=== PATIENT | male | born 1945 | race Two or more races ===

== ENCOUNTER 2021-03-11 11:50 | Inpatient (IN) | payer OTHER ==
[~2021-03-11] VITALS: Ht 165.1 cm; Wt 66.0 kg
[2021-03-11] MEDS ORDERED: DexAMETHasone SOD PHOS 10MG/1ML VIAL INJ IV ONE (12:15)
[2021-03-11] MEDS ORDERED: ACETAMINOPHEN 650 MG RECT SUPP PR ONE (12:15)
[2021-03-11 13:45] LABS: Basophils # (auto) 0.1 10 ^3/uL (0-0.2); Basophils % (auto) 1.7 % (0.0-2.0); Eosinophils # (auto) 0 10 ^3/uL (0-0.8); Hematocrit 42.4 % (41.0-53.0); Hemoglobin 14.2 g/dL (13.5-17.5); Lymphocytes # (auto) 0.9 10 ^3/uL (0.4-5.4); Lymphocytes % (auto) 10.9 % (10.0-50.0); Mean Corpuscular Hemoglobin 28.8 pg (28.0-32.0); Mean Corpuscular Hgb Conc. 33.4 g/dL (32.0-36.0); Mean Corpuscular Volume 86.1 fL (80.0-100.0); Monocytes # (auto) 0.4 10 ^3/uL (0-1.3); Monocytes % (auto) 5.6 % (0.0-12.0); Neutrophils # (auto) 6.6 10 ^3/uL (1.6-8.6); Neutrophils % (auto) 81.8 % (37.0-80.0); Nucleated Red Blood Cells % 0.2 %; Red Blood Cells 4.92 10^6/uL (4.5-5.90); Red Cell Distribution Width 16.7 % (11.8-14.3)
[2021-03-11 13:59] LABS: INR 1.05 (0.9-1.15); Partial Thromboplastin Time 25.1 sec (23.6-33.0)
[2021-03-11 14:05] LABS: Albumin 2.7 g/dL (3.4-5.0); Calcium 8.3 mg/dL (8.5-10.1); Potassium 3.3 mmol/L (3.5-5.1)
[2021-03-11 14:24] LABS: BUN/Creatinine Ratio 24.2; Bilirubin, Total 0.5 mg/dL (0.2-1.0); Total Protein 7.1 g/dL (6.4-8.2)
[2021-03-11 15:14] LABS: CRP High Sensitivity 15.6 mg/dL (< 0.3)
[2021-03-11] MEDS ORDERED: cefTRIAXone 1GM/50ML D5W 50 ML IV ONE (18:00)
[2021-03-11] MEDS ORDERED: AZITHROMYCIN 500MG/ 250ML 250 ML IV ONE (18:00)
[2021-03-11] MEDS ORDERED: ENOXAPARIN SOD 80 MG/0.8ML SYRINGE SC ONE (18:00)
[2021-03-11] MEDS ORDERED: SOD CHL 0.9%/ KCL 20MEQ 1,000 ML IV ONE (18:30)
[2021-03-11] MEDS ORDERED: NITROGLYCERIN 0.4 MG SL TAB SL PRN (18:30)
[2021-03-11] MEDS ORDERED: VANCOMYCIN PER PHARMACY 0 MG IV SCH (18:30)
[2021-03-11] MEDS ORDERED: MORPHINE SULFATE INJECTION 2 MG/ML SYRG IV PRN ×2 (18:30)
[2021-03-11] MEDS ORDERED: hydrALAZINE HCL 20 MG/ML VL IV PRN (18:30)
[2021-03-11] MEDS ORDERED: ONDANSETRON HCL 4 MG/2 ML VIAL IV PRN (18:30)
[2021-03-11] MEDS ORDERED: REMDESIVIR PER PHARMACY 0 ML IV SCH (20:00)
[2021-03-11] MEDS ORDERED: IOHEXOL 350 MG/ML 100ML IJ ONE (20:42)
[2021-03-11] MEDS ORDERED: VANCOMYCIN 1GM/250ML 250 ML IV ONE (21:00)
[2021-03-11] MEDS: BUDESONIDE (INHALATION) 180 MCG IH IN SCH (21:52)
[2021-03-11] MEDS: VANCOMYCIN 1GM/250ML 250 ML IV SCH (22:00)
[2021-03-11] MEDS: FAMOTIDINE (10MG/ML) 2ML VL IV SCH (22:00)
[2021-03-11] MEDS ORDERED: REMDESIVIR 200 MG in NS 210ml LOADING DOSE ADULT IV ONE (22:00)
[2021-03-11 23:03] LABS: Urine Bacteria FEW /hpf (None Seen); Urine Blood 3+ /uL (Negative); Urine Mucus FEW (None Seen); Urine WBC 134 /hpf (0 - 3)
[2021-03-11 23:19] VITALS: BP 129/75
[2021-03-12] MEDS ORDERED: methylPREDNISolone SOD SUCC 125 MG/2 ML VL IV ONE (04:30)
[2021-03-12] MEDS ORDERED: NOREPINEPHRINE 8 MG/250ML KIT 250 ML IV SCH (04:45)
[2021-03-12] MEDS ORDERED: ROCURONIUM 10MG/ML 10ML VIAL IV ONE (04:45)
[2021-03-12] MEDS ORDERED: ETOMIDATE (2MG/ML) 20ML VIAL IV ONE (04:45)
[2021-03-12] MEDS ORDERED: PROPOFOL 100 ML IV SCH (04:45)
[2021-03-12 07:25] LABS: Basophils # (auto) 0 10 ^3/uL (0-0.2); Basophils % (auto) 0.3 % (0.0-2.0); Eosinophils # (auto) 0 10 ^3/uL (0-0.8); Hematocrit 38.3 % (41.0-53.0); Hemoglobin 13.1 g/dL (13.5-17.5); Lymphocytes # (auto) 0.5 10 ^3/uL (0.4-5.4); Lymphocytes % (auto) 7.7 % (10.0-50.0); Mean Corpuscular Hemoglobin 29.7 pg (28.0-32.0); Mean Corpuscular Hgb Conc. 34.3 g/dL (32.0-36.0); Mean Corpuscular Volume 86.8 fL (80.0-100.0); Monocytes # (auto) 0.3 10 ^3/uL (0-1.3); Monocytes % (auto) 4.3 % (0.0-12.0); Neutrophils # (auto) 6.2 10 ^3/uL (1.6-8.6); Neutrophils % (auto) 87.7 % (37.0-80.0); Nucleated Red Blood Cells % 0.1 %; Red Cell Distribution Width 16.8 % (11.8-14.3); White Blood Cell 7.1 10^3/uL (4.4-10.8)
[2021-03-12 07:40] LABS: Albumin 2.3 g/dL (3.4-5.0); Potassium 3.5 mmol/L (3.5-5.1)
[2021-03-12 07:48] LABS: BUN/Creatinine Ratio 27.8; Bilirubin, Total 0.4 mg/dL (0.2-1.0); CRP High Sensitivity 16.1 mg/dL (< 0.3); Total Protein 6.8 g/dL (6.4-8.2)
[2021-03-12] MEDS: cefTRIAXone 1GM/50ML D5W 50 ML IV SCH (08:35)
[2021-03-12] MEDS: ALBUTEROL SULF HFA 90MCG INH 200DOSE IN PRN (09:34)
[2021-03-12] MEDS: BUDESONIDE (INHALATION) 180 MCG IH IN SCH ×2 (09:35→22:00)
[2021-03-12] MEDS: DexAMETHasone SOD PHOS 10MG/1ML VIAL INJ IV SCH (09:52)
[2021-03-12] MEDS: CHOLECALCIFEROL (VITD3) 2,000 UNIT CAP/TAB PO SCH (10:00)
[2021-03-12] MEDS: ASCORBIC ACID 1,000 MG TAB PO SCH (10:00)
[2021-03-12] MEDS ORDERED: PANTOPRAZOLE 40 MG/10 ML VIAL INJ IV SCH (10:00)
[2021-03-12] MEDS: ZINC SULFATE 220mg CAP or TAB PO SCH (10:00)
[2021-03-12] MEDS: AZITHROMYCIN 500MG/ 250ML 250 ML IV SCH (10:02)
[2021-03-12] MEDS: FAMOTIDINE (10MG/ML) 2ML VL IV SCH ×2 (10:02→22:00)
[2021-03-12] MEDS: ENOXAPARIN SOD 40 MG/0.4 ML SYRINGE SC SCH ×2 (10:03→22:00)
[2021-03-12] MEDS: REMDESIVIR 100mg 100 MG in SODIUM CHL 0.9% 230 ML IV SCH (13:43)
[2021-03-12] MEDS: VANCOMYCIN 1GM/250ML 250 ML IV SCH (16:00)
[2021-03-12 18:38] LABS: Cholesterol 168 mg/dL (< 200)
[2021-03-12 18:40] LABS: HDL Cholesterol 25 mg/dL (40-59); LDL Cholesterol 123 mg/dL (< 100); Triglycerides 124 mg/dL (< 150)
[2021-03-12] MEDS ORDERED: MORPHINE SULFATE INJECTION 2 MG/ML SYRG IV PRN (19:15)
[2021-03-12] MEDS ORDERED: NITROGLYCERIN 0.4 MG SL TAB SL PRN (19:15)
[2021-03-12] MEDS: ATORVASTATIN 20 MG TAB PO SCH (22:00)
[2021-03-13] MEDS: HALOPERIDOL LACTATE 5 MG/ML INJ VIAL IM PRN ×2 (00:41→06:04)
[2021-03-13 07:00] LABS: Calcium 8.6 mg/dL (8.5-10.1)
[2021-03-13 07:09] LABS: Albumin 2.5 g/dL (3.4-5.0); BUN/Creatinine Ratio 28.6; Bilirubin, Total 0.4 mg/dL (0.2-1.0); CRP High Sensitivity 11.9 mg/dL (< 0.3); Total Protein 6.9 g/dL (6.4-8.2)
[2021-03-13] MEDS: BUDESONIDE (INHALATION) 180 MCG IH IN SCH (07:40)
[2021-03-13] MEDS: ALBUTEROL SULF HFA 90MCG INH 200DOSE IN PRN (07:52)
[2021-03-13] MEDS ORDERED: SUCCINYLCHOLINE CHLORIDE 20 MG/ML 10ML VIAL IV ONE ×2 (08:55→09:07)
[2021-03-13] MEDS ORDERED: ETOMIDATE (2MG/ML) 20ML VIAL IV ONE ×2 (08:55→09:07)
[2021-03-13] MEDS ORDERED: MIDAZOLAM DRIP 50 mg/50mL 50 ML IV ONE (08:55)
[2021-03-13] MEDS ORDERED: MIDAZOLAM HCL 2MG/2ML 2ml VIAL (1mg/ml) IV SCH (09:12)
[2021-03-13 09:35] VITALS: BP 92/58
[2021-03-13] MEDS: MIDAZOLAM DRIP 50 mg/50mL 50 ML IV SCH ×4 (10:06→23:29)
[2021-03-13] MEDS: PROPOFOL 100 ML IV SCH (10:15)
[2021-03-13] MEDS ORDERED: NOREPINEPHRINE 8 MG/250ML KIT 250 ML IV ONE (10:40)
[2021-03-13] MEDS: NOREPINEPHRINE 8 MG/250ML KIT 250 ML IV SCH (10:54)
[2021-03-13] MEDS: cefTRIAXone 1GM/50ML D5W 50 ML IV SCH (10:56)
[2021-03-13] MEDS ORDERED: ROCURONIUM 10MG/ML 10ML VIAL IV ONE (11:45)
[2021-03-13] MEDS: AZITHROMYCIN 500MG/ 250ML 250 ML IV SCH (11:55)
[2021-03-13] MEDS: ENOXAPARIN SOD 40 MG/0.4 ML SYRINGE SC SCH ×2 (11:56→21:52)
[2021-03-13] MEDS: FAMOTIDINE (10MG/ML) 2ML VL IV SCH ×2 (12:12→21:52)
[2021-03-13] MEDS: DexAMETHasone SOD PHOS 10MG/1ML VIAL INJ IV SCH (12:12)
[2021-03-13] MEDS: VANCOMYCIN 1GM/250ML 250 ML IV SCH (13:10)
[2021-03-13 14:09] VITALS: BP 108/60
[2021-03-13] MEDS: ZINC SULFATE 220mg CAP or TAB PO SCH (14:22)
[2021-03-13] MEDS: CHOLECALCIFEROL (VITD3) 2,000 UNIT CAP/TAB PO SCH (14:22)
[2021-03-13] MEDS: ASCORBIC ACID 1,000 MG TAB PO SCH (14:22)
[2021-03-13] MEDS: REMDESIVIR 100mg 100 MG in SODIUM CHL 0.9% 230 ML IV SCH (15:55)
[2021-03-13 18:25] VITALS: BP 118/52
[2021-03-13] MEDS: ALBUTEROL SULF 2.5 MG/0.5ML(0.5%) NEB SOLN NEB PRN (18:47)
[2021-03-13] MEDS: BUDESONIDE (INHALATION) 0.5 MG/2 ML NEB NEB SCH (18:47)
[2021-03-13 20:21] VITALS: BP 148/77
[2021-03-13] MEDS: ATORVASTATIN 20 MG TAB PO SCH (21:52)
[2021-03-13 22:43] VITALS: BP 121/69
[2021-03-14] VITALS (14 sets, daily range): BP systolic 90–121; BP diastolic 48–66
[2021-03-14] MEDS: VANCOMYCIN 1GM/250ML 250 ML IV SCH ×2 (04:03→16:19)
[2021-03-14 06:41] LABS: Basophils # (auto) 0 10 ^3/uL (0-0.2); Basophils % (auto) 0.2 % (0.0-2.0); Eosinophils # (auto) 0 10 ^3/uL (0-0.8); Hematocrit 32.3 % (41.0-53.0); Hemoglobin 11.1 g/dL (13.5-17.5); Lymphocytes # (auto) 0.6 10 ^3/uL (0.4-5.4); Lymphocytes % (auto) 8.6 % (10.0-50.0); Mean Corpuscular Hemoglobin 29.9 pg (28.0-32.0); Mean Corpuscular Hgb Conc. 34.4 g/dL (32.0-36.0); Mean Corpuscular Volume 86.8 fL (80.0-100.0); Monocytes # (auto) 0.3 10 ^3/uL (0-1.3); Monocytes % (auto) 4.5 % (0.0-12.0); Neutrophils # (auto) 6.6 10 ^3/uL (1.6-8.6); Neutrophils % (auto) 86.7 % (37.0-80.0); Nucleated Red Blood Cells % 0.1 %; Red Blood Cells 3.73 10^6/uL (4.5-5.90); Red Cell Distribution Width 16.7 % (11.8-14.3); White Blood Cell 7.6 10^3/uL (4.4-10.8)
[2021-03-14 06:54] LABS: Potassium 3.5 mmol/L (3.5-5.1)
[2021-03-14] MEDS: MIDAZOLAM DRIP 50 mg/50mL 50 ML IV SCH ×4 (07:01→17:57)
[2021-03-14 07:20] LABS: Albumin 1.8 g/dL (3.4-5.0); BUN/Creatinine Ratio 27.1; Bilirubin, Total 0.4 mg/dL (0.2-1.0); CRP High Sensitivity 15.1 mg/dL (< 0.3); Calcium 7.5 mg/dL (8.5-10.1); Total Protein 5.4 g/dL (6.4-8.2)
[2021-03-14] MEDS: BUDESONIDE (INHALATION) 0.5 MG/2 ML NEB NEB SCH ×2 (07:35→18:56)
[2021-03-14] MEDS: ALBUTEROL SULF 2.5 MG/0.5ML(0.5%) NEB SOLN NEB PRN ×2 (07:35→18:56)
[2021-03-14] MEDS: PROPOFOL 100 ML IV SCH ×2 (09:09→15:58)
[2021-03-14] MEDS: cefTRIAXone 1GM/50ML D5W 50 ML IV SCH (10:16)
[2021-03-14] MEDS: ZINC SULFATE 220mg CAP or TAB PO SCH (10:17)
[2021-03-14] MEDS: CHOLECALCIFEROL (VITD3) 2,000 UNIT CAP/TAB PO SCH (10:17)
[2021-03-14] MEDS: ASCORBIC ACID 1,000 MG TAB PO SCH (10:17)
[2021-03-14] MEDS: DexAMETHasone SOD PHOS 10MG/1ML VIAL INJ IV SCH (10:17)
[2021-03-14] MEDS: AZITHROMYCIN 500MG/ 250ML 250 ML IV SCH (10:17)
[2021-03-14] MEDS: FAMOTIDINE (10MG/ML) 2ML VL IV SCH ×2 (10:17→21:49)
[2021-03-14] MEDS: ENOXAPARIN SOD 40 MG/0.4 ML SYRINGE SC SCH ×2 (10:18→21:49)
[2021-03-14] MEDS: NOREPINEPHRINE 8 MG/250ML KIT 250 ML IV SCH (10:45)
[2021-03-14] MEDS: REMDESIVIR 100mg 100 MG in SODIUM CHL 0.9% 230 ML IV SCH (15:21)
[2021-03-14] MEDS: ATORVASTATIN 20 MG TAB PO SCH (21:35)
[2021-03-15] VITALS (9 sets, daily range): BP systolic 104–149; BP diastolic 53–64
[2021-03-15] MEDS: MIDAZOLAM DRIP 50 mg/50mL 50 ML IV SCH ×6 (02:30→18:10)
[2021-03-15] MEDS: VANCOMYCIN 1GM/250ML 250 ML IV SCH ×2 (04:15→17:01)
[2021-03-15] MEDS: BUDESONIDE (INHALATION) 0.5 MG/2 ML NEB NEB SCH ×2 (05:52→22:26)
[2021-03-15] MEDS: ALBUTEROL SULF 2.5 MG/0.5ML(0.5%) NEB SOLN NEB PRN ×2 (05:52→22:25)
[2021-03-15 07:53] LABS: Albumin 1.7 g/dL (3.4-5.0); BUN/Creatinine Ratio 24.3; Basophils # (auto) 0 10 ^3/uL (0-0.2); Basophils % (auto) 0.1 % (0.0-2.0); Calcium 7.7 mg/dL (8.5-10.1); Eosinophils # (auto) 0 10 ^3/uL (0-0.8); Hematocrit 33.6 % (41.0-53.0); Hemoglobin 11.1 g/dL (13.5-17.5); Lymphocytes # (auto) 0.5 10 ^3/uL (0.4-5.4); Mean Corpuscular Hemoglobin 29.1 pg (28.0-32.0); Mean Corpuscular Volume 88.3 fL (80.0-100.0); Monocytes # (auto) 0.3 10 ^3/uL (0-1.3); Monocytes % (auto) 4.7 % (0.0-12.0); Neutrophils # (auto) 6.3 10 ^3/uL (1.6-8.6); Neutrophils % (auto) 88.2 % (37.0-80.0); Potassium 3.8 mmol/L (3.5-5.1); Red Blood Cells 3.81 10^6/uL (4.5-5.90); Red Cell Distribution Width 17.7 % (11.8-14.3); White Blood Cell 7.2 10^3/uL (4.4-10.8)
[2021-03-15 07:56] LABS: Bilirubin, Total 0.3 mg/dL (0.2-1.0); Total Protein 5.4 g/dL (6.4-8.2)
[2021-03-15] MEDS: cefTRIAXone 1GM/50ML D5W 50 ML IV SCH (09:50)
[2021-03-15] MEDS: DexAMETHasone SOD PHOS 10MG/1ML VIAL INJ IV SCH (10:04)
[2021-03-15] MEDS: CHOLECALCIFEROL (VITD3) 2,000 UNIT CAP/TAB PO SCH (10:04)
[2021-03-15] MEDS: ZINC SULFATE 220mg CAP or TAB PO SCH (10:04)
[2021-03-15] MEDS: ASCORBIC ACID 1,000 MG TAB PO SCH (10:04)
[2021-03-15] MEDS: FAMOTIDINE (10MG/ML) 2ML VL IV SCH ×2 (10:04→22:16)
[2021-03-15] MEDS: ENOXAPARIN SOD 40 MG/0.4 ML SYRINGE SC SCH ×2 (10:04→22:17)
[2021-03-15] MEDS: AZITHROMYCIN 500MG/ 250ML 250 ML IV SCH (10:05)
[2021-03-15] MEDS: PROPOFOL 100 ML IV SCH ×3 (10:32→19:13)
[2021-03-15] MEDS: NOREPINEPHRINE 8 MG/250ML KIT 250 ML IV SCH (11:30)
[2021-03-15] MEDS: REMDESIVIR 100mg 100 MG in SODIUM CHL 0.9% 230 ML IV SCH (16:44)
[2021-03-15] MEDS: METOCLOPRAMIDE HCL 5MG/ml INJ 2ml VIAL IV SCH (22:16)
[2021-03-15] MEDS: ATORVASTATIN 20 MG TAB PO SCH (22:17)
[2021-03-16] VITALS (9 sets, daily range): BP systolic 103–122; BP diastolic 52–66
[2021-03-16] MEDS: VANCOMYCIN 1GM/250ML 250 ML IV SCH ×2 (03:57→16:12)
[2021-03-16] MEDS: BUDESONIDE (INHALATION) 0.5 MG/2 ML NEB NEB SCH ×2 (06:18→22:13)
[2021-03-16] MEDS: ALBUTEROL SULF 2.5 MG/0.5ML(0.5%) NEB SOLN NEB PRN (06:18)
[2021-03-16] MEDS: METOCLOPRAMIDE HCL 5MG/ml INJ 2ml VIAL IV SCH ×3 (06:20→22:15)
[2021-03-16] MEDS: MIDAZOLAM DRIP 50 mg/50mL 50 ML IV SCH ×4 (08:00→23:00)
[2021-03-16] MEDS: cefTRIAXone 1GM/50ML D5W 50 ML IV SCH (09:23)
[2021-03-16] MEDS: CHOLECALCIFEROL (VITD3) 2,000 UNIT CAP/TAB PO SCH (09:25)
[2021-03-16] MEDS: ASCORBIC ACID 1,000 MG TAB PO SCH (09:25)
[2021-03-16] MEDS: DexAMETHasone SOD PHOS 10MG/1ML VIAL INJ IV SCH (09:25)
[2021-03-16] MEDS: ZINC SULFATE 220mg CAP or TAB PO SCH (09:25)
[2021-03-16] MEDS: FAMOTIDINE (10MG/ML) 2ML VL IV SCH ×2 (09:26→22:14)
[2021-03-16] MEDS: ENOXAPARIN SOD 40 MG/0.4 ML SYRINGE SC SCH ×2 (09:26→22:15)
[2021-03-16] MEDS: AZITHROMYCIN 500MG/ 250ML 250 ML IV SCH (09:54)
[2021-03-16] MEDS: NOREPINEPHRINE 8 MG/250ML KIT 250 ML IV SCH (10:45)
[2021-03-16] MEDS: ATORVASTATIN 20 MG TAB PO SCH (22:15)
[2021-03-17] VITALS (73 sets, daily range): BP systolic 98–129; BP diastolic 48–92
[2021-03-17] MEDS ORDERED: PROPOFOL 100 ML IV ONE ×2 (02:51→13:30)
[2021-03-17] MEDS: VANCOMYCIN 1GM/250ML 250 ML IV SCH ×2 (05:32→16:13)
[2021-03-17] MEDS: METOCLOPRAMIDE HCL 5MG/ml INJ 2ml VIAL IV SCH ×3 (05:32→21:59)
[2021-03-17] MEDS ORDERED: PROPOFOL 200 ML IV ONE (05:39)
[2021-03-17] MEDS ORDERED: MIDAZOLAM DRIP 50 mg/50mL 100 ML IV ONE (05:43)
[2021-03-17] MEDS ORDERED: VANCOMYCIN 1GM/250ML 250 ML IV ONE (05:44)
[2021-03-17] MEDS ORDERED: METOCLOPRAMIDE HCL 5MG/ml INJ 2ml VIAL ONE (05:44)
[2021-03-17 06:00] LABS: Hematocrit 33.2 % (41.0-53.0)
[2021-03-17 06:02] LABS: Mean Corpuscular Hemoglobin 28.7 pg (28.0-32.0); Mean Corpuscular Hgb Conc. 33.1 g/dL (32.0-36.0); Mean Corpuscular Volume 86.8 fL (80.0-100.0); Red Blood Cells 3.83 10^6/uL (4.5-5.90); Red Cell Distribution Width 17.1 % (11.8-14.3); White Blood Cell 7.2 10^3/uL (4.4-10.8)
[2021-03-17] MEDS: ALBUTEROL SULF 2.5 MG/0.5ML(0.5%) NEB SOLN NEB PRN ×2 (06:20→18:59)
[2021-03-17 06:21] LABS: BUN/Creatinine Ratio 38.3; Magnesium 2.8 mg/dL (1.6-2.6); Potassium 4.5 mmol/L (3.5-5.1)
[2021-03-17] MEDS: BUDESONIDE (INHALATION) 0.5 MG/2 ML NEB NEB SCH ×2 (06:21→19:00)
[2021-03-17 06:34] LABS: Basophils % (manual) 0 (0.0-2.0); Blast Cells 0; Eosinophils % (manual) 0 (0-7); Metamyelocytes % 0; Myelocytes % 0; Promyelocytes % 0; Reactive Lymphocytes 0
[2021-03-17 08:46] LABS: Band Neutrophils % (manual) 2; Lymphocytes % (manual) 10 (10.0-50.0); Monocytes % (manual) 6 (0-12)
[2021-03-17] MEDS: MIDAZOLAM DRIP 50 mg/50mL 50 ML IV SCH ×4 (09:00→23:18)
[2021-03-17] MEDS: cefTRIAXone 1GM/50ML D5W 50 ML IV SCH (09:37)
[2021-03-17] MEDS ORDERED: cefTRIAXone 1GM/50ML D5W 50 ML IV ONE (09:39)
[2021-03-17] MEDS: ZINC SULFATE 220mg CAP or TAB PO SCH (10:00)
[2021-03-17] MEDS: CHOLECALCIFEROL (VITD3) 2,000 UNIT CAP/TAB PO SCH (10:00)
[2021-03-17] MEDS: ASCORBIC ACID 1,000 MG TAB PO SCH (10:00)
[2021-03-17] MEDS: ENOXAPARIN SOD 40 MG/0.4 ML SYRINGE SC SCH ×2 (10:00→22:00)
[2021-03-17] MEDS: DexAMETHasone SOD PHOS 10MG/1ML VIAL INJ IV SCH (10:00)
[2021-03-17] MEDS: FAMOTIDINE (10MG/ML) 2ML VL IV SCH ×2 (10:00→21:59)
[2021-03-17] MEDS: PROPOFOL 100 ML IV SCH (10:15)
[2021-03-17] MEDS: NOREPINEPHRINE 8 MG/250ML KIT 250 ML IV SCH (10:45)
[2021-03-17] MEDS ORDERED: MIDAZOLAM DRIP 50 mg/50mL 50 ML IV ONE (11:56)
[2021-03-17] MEDS: ATORVASTATIN 20 MG TAB PO SCH (21:59)
[2021-03-18] VITALS (101 sets, daily range): BP systolic 86–144; BP diastolic 44–68
[2021-03-18] MEDS: MIDAZOLAM DRIP 50 mg/50mL 50 ML IV SCH ×6 (03:39→22:36)
[2021-03-18] MEDS: PROPOFOL 100 ML IV SCH ×5 (03:40→19:38)
[2021-03-18] MEDS: VANCOMYCIN 1GM/250ML 250 ML IV SCH ×2 (03:51→16:36)
[2021-03-18] MEDS: ALBUTEROL SULF 2.5 MG/0.5ML(0.5%) NEB SOLN NEB PRN (05:48)
[2021-03-18] MEDS: BUDESONIDE (INHALATION) 0.5 MG/2 ML NEB NEB SCH ×2 (05:49→22:28)
[2021-03-18] MEDS: METOCLOPRAMIDE HCL 5MG/ml INJ 2ml VIAL IV SCH ×3 (06:53→22:03)
[2021-03-18] MEDS: cefTRIAXone 1GM/50ML D5W 50 ML IV SCH (08:59)
[2021-03-18] MEDS: DexAMETHasone SOD PHOS 10MG/1ML VIAL INJ IV SCH (09:40)
[2021-03-18] MEDS: FAMOTIDINE (10MG/ML) 2ML VL IV SCH ×2 (09:40→22:02)
[2021-03-18] MEDS: ASCORBIC ACID 1,000 MG TAB PO SCH (09:41)
[2021-03-18] MEDS: CHOLECALCIFEROL (VITD3) 2,000 UNIT CAP/TAB PO SCH (09:41)
[2021-03-18] MEDS: ZINC SULFATE 220mg CAP or TAB PO SCH (09:41)
[2021-03-18] MEDS: ENOXAPARIN SOD 40 MG/0.4 ML SYRINGE SC SCH ×2 (09:42→22:03)
[2021-03-18] MEDS: NOREPINEPHRINE 8 MG/250ML KIT 250 ML IV SCH (10:34)
[2021-03-18] MEDS ORDERED: MICAFUNGIN SODIUM 100 MG in SODIUM CHL 0.9% 100 ML IV ONE (15:00)
[2021-03-18] MEDS: ATORVASTATIN 20 MG TAB PO SCH (22:02)
[2021-03-19] VITALS (102 sets, daily range): BP systolic 98–158; BP diastolic 50–80
[2021-03-19] MEDS: PROPOFOL 100 ML IV SCH ×3 (00:12→17:30)
[2021-03-19] MEDS: VANCOMYCIN 1GM/250ML 250 ML IV SCH ×2 (03:49→17:31)
[2021-03-19] MEDS: MIDAZOLAM DRIP 50 mg/50mL 50 ML IV SCH ×5 (05:09→22:38)
[2021-03-19 05:13] LABS: Basophils # (auto) 0 10 ^3/uL (0-0.2); Basophils % (auto) 0.1 % (0.0-2.0); Eosinophils # (auto) 0 10 ^3/uL (0-0.8); Hematocrit 31.9 % (41.0-53.0); Hemoglobin 10.7 g/dL (13.5-17.5); Lymphocytes # (auto) 0.5 10 ^3/uL (0.4-5.4); Lymphocytes % (auto) 5.7 % (10.0-50.0); Mean Corpuscular Hemoglobin 29.2 pg (28.0-32.0); Mean Corpuscular Hgb Conc. 33.6 g/dL (32.0-36.0); Mean Corpuscular Volume 87.1 fL (80.0-100.0); Monocytes # (auto) 0.2 10 ^3/uL (0-1.3); Monocytes % (auto) 2.7 % (0.0-12.0); Neutrophils # (auto) 7.6 10 ^3/uL (1.6-8.6); Neutrophils % (auto) 91.5 % (37.0-80.0); Nucleated Red Blood Cells % 0.1 %; Red Blood Cells 3.66 10^6/uL (4.5-5.90); Red Cell Distribution Width 17.2 % (11.8-14.3); White Blood Cell 8.3 10^3/uL (4.4-10.8)
[2021-03-19 05:32] LABS: Calcium 8.5 mg/dL (8.5-10.1); Potassium 4.3 mmol/L (3.5-5.1)
[2021-03-19 05:34] LABS: BUN/Creatinine Ratio 42.9
[2021-03-19] MEDS: METOCLOPRAMIDE HCL 5MG/ml INJ 2ml VIAL IV SCH ×3 (05:56→22:39)
[2021-03-19] MEDS: BUDESONIDE (INHALATION) 0.5 MG/2 ML NEB NEB SCH ×2 (06:34→22:32)
[2021-03-19] MEDS: ALBUTEROL SULF 2.5 MG/0.5ML(0.5%) NEB SOLN NEB PRN ×2 (06:34→22:32)
[2021-03-19] MEDS: cefTRIAXone 1GM/50ML D5W 50 ML IV SCH (09:14)
[2021-03-19] MEDS: FAMOTIDINE (10MG/ML) 2ML VL IV SCH ×2 (09:55→22:38)
[2021-03-19] MEDS: ASCORBIC ACID 1,000 MG TAB PO SCH (09:55)
[2021-03-19] MEDS: ZINC SULFATE 220mg CAP or TAB PO SCH (09:55)
[2021-03-19] MEDS: DexAMETHasone SOD PHOS 10MG/1ML VIAL INJ IV SCH (09:55)
[2021-03-19] MEDS: ENOXAPARIN SOD 40 MG/0.4 ML SYRINGE SC SCH (09:56)
[2021-03-19] MEDS: MICAFUNGIN SODIUM 100 MG in SODIUM CHL 0.9% 100 ML IV SCH (09:59)
[2021-03-19] MEDS: CHOLECALCIFEROL (VITD3) 2,000 UNIT CAP/TAB PO SCH (10:30)
[2021-03-19] MEDS: NOREPINEPHRINE 8 MG/250ML KIT 250 ML IV SCH (10:45)
[2021-03-19] MEDS: Glucerna 1.2 Cal 1Liter BOTTLE GT SCH ×2 (13:30→13:42)
[2021-03-19] MEDS: ATORVASTATIN 20 MG TAB PO SCH (22:39)
[2021-03-20] VITALS (105 sets, daily range): BP systolic 72–172; BP diastolic 43–113
[2021-03-20] MEDS: MIDAZOLAM DRIP 50 mg/50mL 50 ML IV SCH ×5 (01:40→22:00)
[2021-03-20 04:30] LABS: Hematocrit 32.4 % (41.0-53.0); Hemoglobin 10.6 g/dL (13.5-17.5); Mean Corpuscular Hemoglobin 28.6 pg (28.0-32.0); Mean Corpuscular Hgb Conc. 32.8 g/dL (32.0-36.0); Mean Corpuscular Volume 87.3 fL (80.0-100.0); Red Blood Cells 3.71 10^6/uL (4.5-5.90); Red Cell Distribution Width 17.4 % (11.8-14.3); White Blood Cell 7.9 10^3/uL (4.4-10.8)
[2021-03-20 04:34] LABS: BUN/Creatinine Ratio 42.3; Calcium 8.3 mg/dL (8.5-10.1); Potassium 4.3 mmol/L (3.5-5.1)
[2021-03-20 04:43] LABS: CRP High Sensitivity 10.6 mg/dL (< 0.3)
[2021-03-20 04:46] LABS: Basophils % (manual) 0 (0.0-2.0); Blast Cells 0; Eosinophils % (manual) 0 (0-7); Metamyelocytes % 0; Myelocytes % 0; Promyelocytes % 0; Reactive Lymphocytes 0
[2021-03-20 06:14] LABS: Band Neutrophils % (manual) 4; Lymphocytes % (manual) 5 (10.0-50.0); Monocytes % (manual) 2 (0-12)
[2021-03-20] MEDS: ALBUTEROL SULF 2.5 MG/0.5ML(0.5%) NEB SOLN NEB PRN ×2 (06:24→18:50)
[2021-03-20] MEDS: BUDESONIDE (INHALATION) 0.5 MG/2 ML NEB NEB SCH ×2 (06:24→18:50)
[2021-03-20] MEDS: METOCLOPRAMIDE HCL 5MG/ml INJ 2ml VIAL IV SCH ×3 (06:37→22:07)
[2021-03-20] MEDS: VANCOMYCIN 1GM/250ML 250 ML IV SCH ×2 (08:15→22:07)
[2021-03-20] MEDS: cefTRIAXone 1GM/50ML D5W 50 ML IV SCH (09:42)
[2021-03-20] MEDS: ASCORBIC ACID 1,000 MG TAB PO SCH (09:43)
[2021-03-20] MEDS: ZINC SULFATE 220mg CAP or TAB PO SCH (09:43)
[2021-03-20] MEDS: FAMOTIDINE (10MG/ML) 2ML VL IV SCH ×2 (09:43→22:07)
[2021-03-20] MEDS: DexAMETHasone SOD PHOS 10MG/1ML VIAL INJ IV SCH (09:43)
[2021-03-20] MEDS: CHOLECALCIFEROL (VITD3) 2,000 UNIT CAP/TAB PO SCH (09:44)
[2021-03-20] MEDS: MICAFUNGIN SODIUM 100 MG in SODIUM CHL 0.9% 100 ML IV SCH (10:40)
[2021-03-20] MEDS: NOREPINEPHRINE 8 MG/250ML KIT 250 ML IV SCH (10:45)
[2021-03-20] MEDS: ASPirin 81 mg TAB PO SCH (11:40)
[2021-03-20] MEDS ORDERED: fentaNYL Drip 2500mCg/250mlNS 250 ML IV SCH (13:15)
[2021-03-20] MEDS: fentaNYL Drip 2500mCg/250mlNS 250 ML IV SCH (21:59)
[2021-03-20] MEDS: ATORVASTATIN 20 MG TAB PO SCH (22:08)
[2021-03-20] MEDS: PROPOFOL 100 ML IV SCH (22:22)
[2021-03-21] VITALS (105 sets, daily range): BP systolic 71–143; BP diastolic 35–109
[2021-03-21 04:55] LABS: Basophils # (auto) 0 10 ^3/uL (0-0.2); Basophils % (auto) 0.2 % (0.0-2.0); Eosinophils # (auto) 0 10 ^3/uL (0-0.8); Eosinophils % (auto) 0.2 % (0.0-7.0); Hematocrit 31.5 % (41.0-53.0); Hemoglobin 10.4 g/dL (13.5-17.5); Lymphocytes # (auto) 0.5 10 ^3/uL (0.4-5.4); Lymphocytes % (auto) 5.4 % (10.0-50.0); Mean Corpuscular Hemoglobin 28.9 pg (28.0-32.0); Mean Corpuscular Hgb Conc. 33.1 g/dL (32.0-36.0); Mean Corpuscular Volume 87.5 fL (80.0-100.0); Monocytes # (auto) 0.4 10 ^3/uL (0-1.3); Monocytes % (auto) 4.9 % (0.0-12.0); Neutrophils # (auto) 7.7 10 ^3/uL (1.6-8.6); Neutrophils % (auto) 89.3 % (37.0-80.0); Nucleated Red Blood Cells % 0.2 %; Red Blood Cells 3.59 10^6/uL (4.5-5.90); Red Cell Distribution Width 17.2 % (11.8-14.3); White Blood Cell 8.6 10^3/uL (4.4-10.8)
[2021-03-21 05:14] LABS: BUN/Creatinine Ratio 34.5; Calcium 8.4 mg/dL (8.5-10.1); Potassium 4.7 mmol/L (3.5-5.1)
[2021-03-21] MEDS: ALBUTEROL SULF 2.5 MG/0.5ML(0.5%) NEB SOLN NEB PRN ×2 (06:21→22:40)
[2021-03-21] MEDS: BUDESONIDE (INHALATION) 0.5 MG/2 ML NEB NEB SCH ×2 (06:21→22:41)
[2021-03-21] MEDS: METOCLOPRAMIDE HCL 5MG/ml INJ 2ml VIAL IV SCH ×3 (06:50→22:38)
[2021-03-21] MEDS: PROPOFOL 100 ML IV SCH ×5 (09:00→22:37)
[2021-03-21] MEDS: cefTRIAXone 1GM/50ML D5W 50 ML IV SCH (09:07)
[2021-03-21] MEDS: MIDAZOLAM DRIP 50 mg/50mL 50 ML IV SCH ×2 (09:08→17:35)
[2021-03-21] MEDS: FAMOTIDINE (10MG/ML) 2ML VL IV SCH ×2 (10:11→22:36)
[2021-03-21] MEDS: ASCORBIC ACID 1,000 MG TAB PO SCH (10:12)
[2021-03-21] MEDS: ASPirin 81 mg TAB PO SCH (10:12)
[2021-03-21] MEDS: DexAMETHasone SOD PHOS 10MG/1ML VIAL INJ IV SCH (10:12)
[2021-03-21] MEDS: CHOLECALCIFEROL (VITD3) 2,000 UNIT CAP/TAB PO SCH (10:12)
[2021-03-21] MEDS: ZINC SULFATE 220mg CAP or TAB PO SCH (10:12)
[2021-03-21] MEDS: MICAFUNGIN SODIUM 100 MG in SODIUM CHL 0.9% 100 ML IV SCH (10:16)
[2021-03-21] MEDS: NOREPINEPHRINE 8 MG/250ML KIT 250 ML IV SCH (10:45)
[2021-03-21] MEDS: VANCOMYCIN 1GM/250ML 250 ML IV SCH (11:57)
[2021-03-21] MEDS: fentaNYL Drip 2500mCg/250mlNS 250 ML IV SCH (17:32)
[2021-03-21] MEDS: ATORVASTATIN 20 MG TAB PO SCH (22:38)
[2021-03-22] VITALS (102 sets, daily range): BP systolic 72–168; BP diastolic 37–132
[2021-03-22] MEDS: VANCOMYCIN 1GM/250ML 250 ML IV SCH (02:00)
[2021-03-22 04:56] LABS: Basophils # (auto) 0 10 ^3/uL (0-0.2); Basophils % (auto) 0.1 % (0.0-2.0); Eosinophils # (auto) 0 10 ^3/uL (0-0.8); Eosinophils % (auto) 0.4 % (0.0-7.0); Hematocrit 30.3 % (41.0-53.0); Hemoglobin 10.1 g/dL (13.5-17.5); Lymphocytes # (auto) 0.4 10 ^3/uL (0.4-5.4); Lymphocytes % (auto) 4.4 % (10.0-50.0); Mean Corpuscular Hgb Conc. 33.2 g/dL (32.0-36.0); Mean Corpuscular Volume 87.2 fL (80.0-100.0); Monocytes # (auto) 0.3 10 ^3/uL (0-1.3); Monocytes % (auto) 2.8 % (0.0-12.0); Neutrophils # (auto) 8.4 10 ^3/uL (1.6-8.6); Neutrophils % (auto) 92.3 % (37.0-80.0); Nucleated Red Blood Cells % 0.1 %; Red Blood Cells 3.48 10^6/uL (4.5-5.90); Red Cell Distribution Width 17.4 % (11.8-14.3); White Blood Cell 9.1 10^3/uL (4.4-10.8)
[2021-03-22 05:15] LABS: Potassium 4.3 mmol/L (3.5-5.1)
[2021-03-22 05:20] LABS: BUN/Creatinine Ratio 41.9; Calcium 8.5 mg/dL (8.5-10.1)
[2021-03-22] MEDS: ALBUTEROL SULF 2.5 MG/0.5ML(0.5%) NEB SOLN NEB PRN ×2 (06:27→18:43)
[2021-03-22] MEDS: BUDESONIDE (INHALATION) 0.5 MG/2 ML NEB NEB SCH ×2 (06:27→18:42)
[2021-03-22] MEDS: METOCLOPRAMIDE HCL 5MG/ml INJ 2ml VIAL IV SCH ×3 (06:59→22:16)
[2021-03-22] MEDS: cefTRIAXone 1GM/50ML D5W 50 ML IV SCH (09:51)
[2021-03-22] MEDS: ASPirin 81 mg TAB PO SCH (09:52)
[2021-03-22] MEDS: DexAMETHasone SOD PHOS 10MG/1ML VIAL INJ IV SCH (09:52)
[2021-03-22] MEDS: FAMOTIDINE (10MG/ML) 2ML VL IV SCH ×2 (09:52→22:16)
[2021-03-22] MEDS: MICAFUNGIN SODIUM 100 MG in SODIUM CHL 0.9% 100 ML IV SCH (09:52)
[2021-03-22] MEDS: ASCORBIC ACID 1,000 MG TAB PO SCH (09:52)
[2021-03-22] MEDS: CHOLECALCIFEROL (VITD3) 2,000 UNIT CAP/TAB PO SCH (09:52)
[2021-03-22] MEDS: ZINC SULFATE 220mg CAP or TAB PO SCH (09:52)
[2021-03-22] MEDS: ENOXAPARIN SOD 40 MG/0.4 ML SYRINGE SC SCH (11:59)
[2021-03-22] MEDS: PROPOFOL 100 ML IV SCH ×2 (17:40→21:07)
[2021-03-22] MEDS: fentaNYL Drip 2500mCg/250mlNS 250 ML IV SCH (18:42)
[2021-03-22] MEDS: NOREPINEPHRINE 8 MG/250ML KIT 250 ML IV SCH (21:08)
[2021-03-22] MEDS: ATORVASTATIN 20 MG TAB PO SCH (22:16)
[2021-03-23] VITALS (97 sets, daily range): BP systolic 90–167; BP diastolic 39–72
[2021-03-23] MEDS: MIDAZOLAM DRIP 50 mg/50mL 50 ML IV SCH ×2 (01:27→05:10)
[2021-03-23] MEDS: PROPOFOL 100 ML IV SCH ×2 (01:41→05:10)
[2021-03-23] MEDS: METOCLOPRAMIDE HCL 5MG/ml INJ 2ml VIAL IV SCH ×3 (05:28→22:34)
[2021-03-23 05:51] LABS: Basophils # (auto) 0 10 ^3/uL (0-0.2); Basophils % (auto) 0.2 % (0.0-2.0); Eosinophils # (auto) 0.1 10 ^3/uL (0-0.8); Eosinophils % (auto) 0.7 % (0.0-7.0); Hemoglobin 10.2 g/dL (13.5-17.5); Lymphocytes # (auto) 0.6 10 ^3/uL (0.4-5.4); Lymphocytes % (auto) 5.8 % (10.0-50.0); Mean Corpuscular Hemoglobin 28.4 pg (28.0-32.0); Mean Corpuscular Volume 86.1 fL (80.0-100.0); Monocytes # (auto) 0.2 10 ^3/uL (0-1.3); Monocytes % (auto) 2.2 % (0.0-12.0); Neutrophils # (auto) 9.5 10 ^3/uL (1.6-8.6); Neutrophils % (auto) 91.1 % (37.0-80.0); Nucleated Red Blood Cells % 0.1 %; Red Cell Distribution Width 17.1 % (11.8-14.3); White Blood Cell 10.4 10^3/uL (4.4-10.8)
[2021-03-23 06:13] LABS: BUN/Creatinine Ratio 51.4; Calcium 8.8 mg/dL (8.5-10.1); Potassium 4.1 mmol/L (3.5-5.1)
[2021-03-23] MEDS: BUDESONIDE (INHALATION) 0.5 MG/2 ML NEB NEB SCH ×2 (07:21→22:33)
[2021-03-23] MEDS: ALBUTEROL SULF 2.5 MG/0.5ML(0.5%) NEB SOLN NEB PRN ×2 (07:21→22:33)
[2021-03-23] MEDS: DexAMETHasone SOD PHOS 10MG/1ML VIAL INJ IV SCH (09:50)
[2021-03-23] MEDS: FUROSEMIDE 40 MG/4 ML VIAL IV SCH (09:51)
[2021-03-23] MEDS: MICAFUNGIN SODIUM 100 MG in SODIUM CHL 0.9% 100 ML IV SCH (09:51)
[2021-03-23] MEDS: ASPirin 81 mg TAB PO SCH (09:51)
[2021-03-23] MEDS: FAMOTIDINE (10MG/ML) 2ML VL IV SCH ×2 (09:51→22:34)
[2021-03-23] MEDS: ENOXAPARIN SOD 40 MG/0.4 ML SYRINGE SC SCH (09:52)
[2021-03-23] MEDS: NOREPINEPHRINE 8 MG/250ML KIT 250 ML IV SCH (10:45)
[2021-03-23] MEDS: fentaNYL Drip 2500mCg/250mlNS 250 ML IV SCH (12:20)
[2021-03-23] MEDS: ATORVASTATIN 20 MG TAB PO SCH (22:34)
[2021-03-24] VITALS (104 sets, daily range): BP systolic 88–174; BP diastolic 35–79
[2021-03-24] MEDS: MIDAZOLAM DRIP 50 mg/50mL 50 ML IV SCH ×2 (01:19→10:41)
[2021-03-24 03:28] LABS: Basophils # (auto) 0 10 ^3/uL (0-0.2); Basophils % (auto) 0.1 % (0.0-2.0); Eosinophils # (auto) 0 10 ^3/uL (0-0.8); Eosinophils % (auto) 0.4 % (0.0-7.0); Hematocrit 30.5 % (41.0-53.0); Hemoglobin 10.3 g/dL (13.5-17.5); Lymphocytes # (auto) 0.5 10 ^3/uL (0.4-5.4); Lymphocytes % (auto) 5.5 % (10.0-50.0); Mean Corpuscular Hemoglobin 29.3 pg (28.0-32.0); Mean Corpuscular Hgb Conc. 33.7 g/dL (32.0-36.0); Monocytes # (auto) 0.3 10 ^3/uL (0-1.3); Neutrophils # (auto) 7.9 10 ^3/uL (1.6-8.6); Red Cell Distribution Width 16.8 % (11.8-14.3); White Blood Cell 8.7 10^3/uL (4.4-10.8)
[2021-03-24 03:43] LABS: Potassium 3.9 mmol/L (3.5-5.1)
[2021-03-24 03:50] LABS: BUN/Creatinine Ratio 54.5; Calcium 8.2 mg/dL (8.5-10.1)
[2021-03-24] MEDS: BUDESONIDE (INHALATION) 0.5 MG/2 ML NEB NEB SCH ×2 (06:21→18:36)
[2021-03-24] MEDS: ALBUTEROL SULF 2.5 MG/0.5ML(0.5%) NEB SOLN NEB PRN ×2 (06:22→18:36)
[2021-03-24] MEDS: METOCLOPRAMIDE HCL 5MG/ml INJ 2ml VIAL IV SCH ×3 (06:50→21:23)
[2021-03-24] MEDS: ASPirin 81 mg TAB PO SCH (09:50)
[2021-03-24] MEDS: FUROSEMIDE 40 MG/4 ML VIAL IV SCH (09:51)
[2021-03-24] MEDS: FAMOTIDINE (10MG/ML) 2ML VL IV SCH ×2 (09:51→21:22)
[2021-03-24] MEDS: ENOXAPARIN SOD 40 MG/0.4 ML SYRINGE SC SCH (09:51)
[2021-03-24] MEDS: DexAMETHasone SOD PHOS 10MG/1ML VIAL INJ IV SCH (09:51)
[2021-03-24] MEDS: MICAFUNGIN SODIUM 100 MG in SODIUM CHL 0.9% 100 ML IV SCH (09:52)
[2021-03-24] MEDS: PROPOFOL 100 ML IV SCH (09:52)
[2021-03-24] MEDS: NOREPINEPHRINE 8 MG/250ML KIT 250 ML IV SCH (10:45)
[2021-03-24] MEDS: fentaNYL Drip 2500mCg/250mlNS 250 ML IV SCH (19:30)
[2021-03-24] MEDS: ATORVASTATIN 20 MG TAB PO SCH (21:23)
[2021-03-25] VITALS (106 sets, daily range): BP systolic 70–159; BP diastolic 37–102
[2021-03-25 02:52] LABS: Basophils # (auto) 0 10 ^3/uL (0-0.2); Basophils % (auto) 0.4 % (0.0-2.0); Eosinophils # (auto) 0.1 10 ^3/uL (0-0.8); Eosinophils % (auto) 1.3 % (0.0-7.0); Hematocrit 30.3 % (41.0-53.0); Hemoglobin 10.3 g/dL (13.5-17.5); Lymphocytes # (auto) 0.8 10 ^3/uL (0.4-5.4); Mean Corpuscular Volume 85.3 fL (80.0-100.0); Monocytes # (auto) 0.2 10 ^3/uL (0-1.3); Neutrophils # (auto) 6.6 10 ^3/uL (1.6-8.6); Neutrophils % (auto) 85.3 % (37.0-80.0); Nucleated Red Blood Cells % 0.3 %; Red Blood Cells 3.55 10^6/uL (4.5-5.90); Red Cell Distribution Width 16.5 % (11.8-14.3); White Blood Cell 7.7 10^3/uL (4.4-10.8)
[2021-03-25 02:55] LABS: BUN/Creatinine Ratio 48.7; Calcium 8.5 mg/dL (8.5-10.1)
[2021-03-25] MEDS: METOCLOPRAMIDE HCL 5MG/ml INJ 2ml VIAL IV SCH ×3 (06:06→21:40)
[2021-03-25] MEDS: ASPirin 81 mg TAB PO SCH (10:00)
[2021-03-25] MEDS: MICAFUNGIN SODIUM 100 MG in SODIUM CHL 0.9% 100 ML IV SCH (10:00)
[2021-03-25] MEDS: DexAMETHasone SOD PHOS 10MG/1ML VIAL INJ IV SCH (10:16)
[2021-03-25] MEDS: FUROSEMIDE 40 MG/4 ML VIAL IV SCH ×2 (10:17→21:40)
[2021-03-25] MEDS: FAMOTIDINE (10MG/ML) 2ML VL IV SCH ×2 (10:18→21:40)
[2021-03-25] MEDS: ENOXAPARIN SOD 40 MG/0.4 ML SYRINGE SC SCH (10:18)
[2021-03-25] MEDS: NOREPINEPHRINE 8 MG/250ML KIT 250 ML IV SCH (10:45)
[2021-03-25] MEDS: PROPOFOL 100 ML IV SCH (11:08)
[2021-03-25] MEDS: fentaNYL Drip 2500mCg/250mlNS 250 ML IV SCH (11:09)
[2021-03-25] MEDS: MIDAZOLAM DRIP 50 mg/50mL 50 ML IV SCH (17:02)
[2021-03-25] MEDS: ATORVASTATIN 20 MG TAB PO SCH (21:40)
[2021-03-25] MEDS: ALBUTEROL SULF 2.5 MG/0.5ML(0.5%) NEB SOLN NEB PRN (22:21)
[2021-03-25] MEDS: BUDESONIDE (INHALATION) 0.5 MG/2 ML NEB NEB SCH (22:21)
[2021-03-26] VITALS (102 sets, daily range): BP systolic 87–196; BP diastolic 49–125
[2021-03-26 03:17] LABS: Albumin 1.6 g/dL (3.4-5.0); Calcium 8.5 mg/dL (8.5-10.1); Potassium 3.3 mmol/L (3.5-5.1)
[2021-03-26 03:20] LABS: BUN/Creatinine Ratio 30.9; Bilirubin, Total 0.4 mg/dL (0.2-1.0); Total Protein 6.7 g/dL (6.4-8.2)
[2021-03-26 03:44] LABS: Basophils # (auto) 0 10 ^3/uL (0-0.2); Basophils % (auto) 0.5 % (0.0-2.0); Eosinophils # (auto) 0.2 10 ^3/uL (0-0.8); Eosinophils % (auto) 1.7 % (0.0-7.0); Hematocrit 36.5 % (41.0-53.0); Hemoglobin 12.3 g/dL (13.5-17.5); Lymphocytes # (auto) 1.1 10 ^3/uL (0.4-5.4); Lymphocytes % (auto) 12.1 % (10.0-50.0); Mean Corpuscular Hemoglobin 29.3 pg (28.0-32.0); Mean Corpuscular Hgb Conc. 33.6 g/dL (32.0-36.0); Mean Corpuscular Volume 87.1 fL (80.0-100.0); Monocytes # (auto) 0.3 10 ^3/uL (0-1.3); Monocytes % (auto) 3.2 % (0.0-12.0); Neutrophils # (auto) 7.7 10 ^3/uL (1.6-8.6); Neutrophils % (auto) 82.5 % (37.0-80.0); Nucleated Red Blood Cells % 0.3 %; Red Blood Cells 4.19 10^6/uL (4.5-5.90); Red Cell Distribution Width 16.3 % (11.8-14.3); White Blood Cell 9.3 10^3/uL (4.4-10.8)
[2021-03-26] MEDS: METOCLOPRAMIDE HCL 5MG/ml INJ 2ml VIAL IV SCH ×3 (05:26→22:26)
[2021-03-26] MEDS: FUROSEMIDE 40 MG/4 ML VIAL IV SCH ×2 (05:26→18:00)
[2021-03-26] MEDS: BUDESONIDE (INHALATION) 0.5 MG/2 ML NEB NEB SCH ×2 (06:31→23:51)
[2021-03-26] MEDS: ALBUTEROL SULF 2.5 MG/0.5ML(0.5%) NEB SOLN NEB PRN ×2 (06:31→23:51)
[2021-03-26] MEDS: PROPOFOL 100 ML IV SCH ×3 (08:14→21:20)
[2021-03-26] MEDS: ENOXAPARIN SOD 40 MG/0.4 ML SYRINGE SC SCH (09:49)
[2021-03-26] MEDS: DexAMETHasone SOD PHOS 10MG/1ML VIAL INJ IV SCH (09:49)
[2021-03-26] MEDS: ASPirin 81 mg TAB PO SCH (09:49)
[2021-03-26] MEDS: FAMOTIDINE (10MG/ML) 2ML VL IV SCH ×2 (09:49→22:26)
[2021-03-26] MEDS: MICAFUNGIN SODIUM 100 MG in SODIUM CHL 0.9% 100 ML IV SCH (09:49)
[2021-03-26] MEDS: NOREPINEPHRINE 8 MG/250ML KIT 250 ML IV SCH (10:45)
[2021-03-26] MEDS: MIDAZOLAM DRIP 50 mg/50mL 50 ML IV SCH ×2 (14:49→18:23)
[2021-03-26] MEDS: fentaNYL Drip 2500mCg/250mlNS 250 ML IV SCH (14:50)
[2021-03-26] MEDS: ATORVASTATIN 20 MG TAB PO SCH (22:26)
[2021-03-26] MEDS: ENOXAPARIN SOD 100 MG/1 ML SYRINGE SC SCH (22:27)
[2021-03-27] VITALS (101 sets, daily range): BP systolic 53–218; BP diastolic 29–115
[2021-03-27] MEDS: MIDAZOLAM DRIP 50 mg/50mL 50 ML IV SCH ×2 (01:00→06:35)
[2021-03-27 04:36] LABS: BUN/Creatinine Ratio 39.4; Calcium 8.6 mg/dL (8.5-10.1); Potassium 3.1 mmol/L (3.5-5.1)
[2021-03-27] MEDS: fentaNYL Drip 2500mCg/250mlNS 250 ML IV SCH (05:01)
[2021-03-27] MEDS ORDERED: POTASSIUM CHL 20MEQ/100ML 100 ML IV ONE (05:24)
[2021-03-27] MEDS: FUROSEMIDE 40 MG/4 ML VIAL IV SCH ×3 (06:00→22:38)
[2021-03-27] MEDS: PROPOFOL 100 ML IV SCH (06:08)
[2021-03-27] MEDS: POTASSIUM CHL 20MEQ/100ML 100 ML IV SCH ×3 (06:09→09:50)
[2021-03-27] MEDS: METOCLOPRAMIDE HCL 5MG/ml INJ 2ml VIAL IV SCH ×3 (06:22→22:37)
[2021-03-27] MEDS: ALBUTEROL SULF 2.5 MG/0.5ML(0.5%) NEB SOLN NEB PRN ×2 (06:27→22:19)
[2021-03-27] MEDS: BUDESONIDE (INHALATION) 0.5 MG/2 ML NEB NEB SCH ×2 (06:28→22:19)
[2021-03-27] MEDS: DexAMETHasone SOD PHOS 10MG/1ML VIAL INJ IV SCH (09:45)
[2021-03-27] MEDS: FAMOTIDINE (10MG/ML) 2ML VL IV SCH ×2 (09:45→22:36)
[2021-03-27] MEDS: ENOXAPARIN SOD 100 MG/1 ML SYRINGE SC SCH ×2 (09:45→22:37)
[2021-03-27] MEDS: MICAFUNGIN SODIUM 100 MG in SODIUM CHL 0.9% 100 ML IV SCH (10:00)
[2021-03-27] MEDS: NOREPINEPHRINE 8 MG/250ML KIT 250 ML IV SCH (10:45)
[2021-03-27] MEDS: ATORVASTATIN 20 MG TAB PO SCH (22:37)
[2021-03-28] VITALS (102 sets, daily range): BP systolic 73–194; BP diastolic 29–85
[2021-03-28] MEDS: PROPOFOL 100 ML IV SCH ×3 (00:59→17:37)
[2021-03-28] MEDS: MIDAZOLAM DRIP 50 mg/50mL 50 ML IV SCH ×3 (01:00→17:38)
[2021-03-28] MEDS: METOCLOPRAMIDE HCL 5MG/ml INJ 2ml VIAL IV SCH ×3 (05:53→22:00)
[2021-03-28 06:14] LABS: BUN/Creatinine Ratio 31.1; Calcium 8.5 mg/dL (8.5-10.1); Potassium 3.4 mmol/L (3.5-5.1)
[2021-03-28 06:22] LABS: Hematocrit 33.6 % (41.0-53.0); Hemoglobin 11.2 g/dL (13.5-17.5); Mean Corpuscular Hgb Conc. 33.2 g/dL (32.0-36.0); Mean Corpuscular Volume 87.4 fL (80.0-100.0); Red Blood Cells 3.85 10^6/uL (4.5-5.90); Red Cell Distribution Width 16.5 % (11.8-14.3); White Blood Cell 10.3 10^3/uL (4.4-10.8)
[2021-03-28] MEDS: ALBUTEROL SULF 2.5 MG/0.5ML(0.5%) NEB SOLN NEB PRN ×2 (06:46→22:04)
[2021-03-28] MEDS: BUDESONIDE (INHALATION) 0.5 MG/2 ML NEB NEB SCH ×2 (06:46→22:04)
[2021-03-28 06:49] LABS: Basophils % (manual) 0 (0.0-2.0); Blast Cells 0; Metamyelocytes % 0; Myelocytes % 0; Promyelocytes % 0; Reactive Lymphocytes 0
[2021-03-28] MEDS ORDERED: POTASSIUM CHL 20MEQ/100ML 100 ML IV ONE (07:00)
[2021-03-28] MEDS: DexAMETHasone SOD PHOS 10MG/1ML VIAL INJ IV SCH (08:34)
[2021-03-28] MEDS: MICAFUNGIN SODIUM 100 MG in SODIUM CHL 0.9% 100 ML IV SCH (08:34)
[2021-03-28] MEDS: ENOXAPARIN SOD 100 MG/1 ML SYRINGE SC SCH ×2 (08:35→22:00)
[2021-03-28] MEDS: FAMOTIDINE (10MG/ML) 2ML VL IV SCH ×2 (08:35→22:00)
[2021-03-28 09:29] LABS: Band Neutrophils % (manual) 5; Eosinophils % (manual) 2 (0-7); Lymphocytes % (manual) 12 (10.0-50.0); Monocytes % (manual) 4 (0-12)
[2021-03-28] MEDS: NOREPINEPHRINE 8 MG/250ML KIT 250 ML IV SCH (10:45)
[2021-03-28] MEDS: FUROSEMIDE 40 MG/4 ML VIAL IV SCH (17:34)
[2021-03-28] MEDS: fentaNYL Drip 2500mCg/250mlNS 250 ML IV SCH (19:30)
[2021-03-28] MEDS: ATORVASTATIN 20 MG TAB PO SCH (22:00)
[2021-03-29] VITALS (101 sets, daily range): BP systolic 66–163; BP diastolic 37–94
[2021-03-29 04:45] LABS: Basophils # (auto) 0.1 10 ^3/uL (0-0.2); Basophils % (auto) 0.8 % (0.0-2.0); Eosinophils # (auto) 0.5 10 ^3/uL (0-0.8); Eosinophils % (auto) 4.9 % (0.0-7.0); Hematocrit 32.7 % (41.0-53.0); Hemoglobin 10.7 g/dL (13.5-17.5); Lymphocytes # (auto) 1.2 10 ^3/uL (0.4-5.4); Lymphocytes % (auto) 10.8 % (10.0-50.0); Mean Corpuscular Hemoglobin 28.6 pg (28.0-32.0); Mean Corpuscular Hgb Conc. 32.6 g/dL (32.0-36.0); Mean Corpuscular Volume 87.8 fL (80.0-100.0); Monocytes # (auto) 0.2 10 ^3/uL (0-1.3); Monocytes % (auto) 2.1 % (0.0-12.0); Neutrophils # (auto) 9.1 10 ^3/uL (1.6-8.6); Neutrophils % (auto) 81.4 % (37.0-80.0); Nucleated Red Blood Cells % 0.3 %; Red Blood Cells 3.72 10^6/uL (4.5-5.90); Red Cell Distribution Width 16.9 % (11.8-14.3); White Blood Cell 11.2 10^3/uL (4.4-10.8)
[2021-03-29 04:55] LABS: Anion Gap 7 (5-15); BUN/Creatinine Ratio 51.4; Blood Urea Nitrogen 19 mg/dL (7-18); Calcium 8.4 mg/dL (8.5-10.1); Carbon Dioxide 28 mmol/L (21-32); Chloride 108 mmol/L (98-107); GFR African American 294 mL/min; GFR Non-African American 243 mL/min; Glucose 86 mg/dL (74-106); Potassium 3.2 mmol/L (3.5-5.1); Sodium 143 mmol/L (136-145)
[2021-03-29 05:09] LABS: CRP High Sensitivity > 19.0 mg/dL (< 0.3)
[2021-03-29] MEDS ORDERED: POTASSIUM CHL 20MEQ/100ML 100 ML IV ONE ×2 (05:15→05:22)
[2021-03-29] MEDS: METOCLOPRAMIDE HCL 5MG/ml INJ 2ml VIAL IV SCH ×3 (05:20→22:21)
[2021-03-29] MEDS: FUROSEMIDE 40 MG/4 ML VIAL IV SCH ×2 (05:20→18:00)
[2021-03-29] MEDS: MICAFUNGIN SODIUM 100 MG in SODIUM CHL 0.9% 100 ML IV SCH (08:57)
[2021-03-29] MEDS: fentaNYL Drip 2500mCg/250mlNS 250 ML IV SCH (08:57)
[2021-03-29] MEDS: DexAMETHasone SOD PHOS 10MG/1ML VIAL INJ IV SCH (08:57)
[2021-03-29] MEDS: ENOXAPARIN SOD 100 MG/1 ML SYRINGE SC SCH ×2 (08:58→22:21)
[2021-03-29] MEDS: FAMOTIDINE (10MG/ML) 2ML VL IV SCH ×2 (08:58→22:13)
[2021-03-29] MEDS: ALBUTEROL SULF 2.5 MG/0.5ML(0.5%) NEB SOLN NEB PRN ×2 (09:33→18:54)
[2021-03-29] MEDS: BUDESONIDE (INHALATION) 0.5 MG/2 ML NEB NEB SCH ×2 (09:33→18:54)
[2021-03-29] MEDS: NOREPINEPHRINE 8 MG/250ML KIT 250 ML IV SCH (10:45)
[2021-03-29] MEDS: ATORVASTATIN 20 MG TAB PO SCH (22:21)
[2021-03-30] VITALS (105 sets, daily range): BP systolic 91–150; BP diastolic 7–75
[2021-03-30] MEDS: PROPOFOL 100 ML IV SCH ×2 (03:36→14:24)
[2021-03-30] MEDS: MIDAZOLAM DRIP 50 mg/50mL 50 ML IV SCH (03:37)
[2021-03-30] MEDS: fentaNYL Drip 2500mCg/250mlNS 250 ML IV SCH ×2 (03:38→23:34)
[2021-03-30 04:28] LABS: Basophils # (auto) 0.1 10 ^3/uL (0-0.2); Basophils % (auto) 0.6 % (0.0-2.0); Eosinophils # (auto) 0.1 10 ^3/uL (0-0.8); Eosinophils % (auto) 0.6 % (0.0-7.0); Hematocrit 32.4 % (41.0-53.0); Hemoglobin 10.6 g/dL (13.5-17.5); Lymphocytes # (auto) 0.6 10 ^3/uL (0.4-5.4); Lymphocytes % (auto) 7.3 % (10.0-50.0); Mean Corpuscular Hemoglobin 28.4 pg (28.0-32.0); Mean Corpuscular Hgb Conc. 32.6 g/dL (32.0-36.0); Mean Corpuscular Volume 87.1 fL (80.0-100.0); Monocytes # (auto) 0.2 10 ^3/uL (0-1.3); Monocytes % (auto) 2.7 % (0.0-12.0); Neutrophils # (auto) 7.7 10 ^3/uL (1.6-8.6); Neutrophils % (auto) 88.8 % (37.0-80.0); Nucleated Red Blood Cells % 0.1 %; Red Blood Cells 3.72 10^6/uL (4.5-5.90); Red Cell Distribution Width 16.5 % (11.8-14.3); White Blood Cell 8.7 10^3/uL (4.4-10.8)
[2021-03-30 04:49] LABS: Anion Gap 7 (5-15); BUN/Creatinine Ratio 34.9; Blood Urea Nitrogen 15 mg/dL (7-18); Calcium 8.8 mg/dL (8.5-10.1); Carbon Dioxide 30 mmol/L (21-32); Chloride 106 mmol/L (98-107); GFR African American 247 mL/min; GFR Non-African American 204 mL/min; Glucose 136 mg/dL (74-106); Potassium 3.5 mmol/L (3.5-5.1); Sodium 143 mmol/L (136-145)
[2021-03-30 05:16] LABS: CRP High Sensitivity > 19.0 mg/dL (< 0.3)
[2021-03-30] MEDS: METOCLOPRAMIDE HCL 5MG/ml INJ 2ml VIAL IV SCH ×3 (06:17→22:55)
[2021-03-30] MEDS: FUROSEMIDE 40 MG/4 ML VIAL IV SCH ×2 (06:17→18:29)
[2021-03-30] MEDS: BUDESONIDE (INHALATION) 0.5 MG/2 ML NEB NEB SCH ×2 (06:33→22:46)
[2021-03-30] MEDS: ALBUTEROL SULF 2.5 MG/0.5ML(0.5%) NEB SOLN NEB PRN ×2 (06:33→22:46)
[2021-03-30] MEDS: FAMOTIDINE (10MG/ML) 2ML VL IV SCH ×2 (09:40→22:55)
[2021-03-30] MEDS: ENOXAPARIN SOD 100 MG/1 ML SYRINGE SC SCH ×2 (09:40→22:56)
[2021-03-30] MEDS: NOREPINEPHRINE 8 MG/250ML KIT 250 ML IV SCH (18:22)
[2021-03-30] MEDS: ATORVASTATIN 20 MG TAB PO SCH (22:56)
[2021-03-31] VITALS (105 sets, daily range): BP systolic 62–145; BP diastolic 38–70
[2021-03-31] MEDS: ACETAMINOPHEN 650 mg PER 20.3 mL UD PO PRN (02:44)
[2021-03-31 02:48] LABS: Hematocrit 30.8 % (41.0-53.0); Hemoglobin 10.1 g/dL (13.5-17.5); Mean Corpuscular Hemoglobin 28.4 pg (28.0-32.0); Mean Corpuscular Hgb Conc. 32.7 g/dL (32.0-36.0); Red Blood Cells 3.54 10^6/uL (4.5-5.90); Red Cell Distribution Width 16.4 % (11.8-14.3); White Blood Cell 9.7 10^3/uL (4.4-10.8)
[2021-03-31 02:59] LABS: Basophils % (manual) 0 (0.0-2.0); Blast Cells 0; Metamyelocytes % 0; Monocytes % (manual) 0 (0-12); Promyelocytes % 0; Reactive Lymphocytes 0
[2021-03-31 03:25] LABS: Calcium 8.6 mg/dL (8.5-10.1); Potassium 3.2 mmol/L (3.5-5.1)
[2021-03-31 03:35] LABS: Band Neutrophils % (manual) 20; Eosinophils % (manual) 7 (0-7); Lymphocytes % (manual) 8 (10.0-50.0); Myelocytes % 1
[2021-03-31 03:52] LABS: BUN/Creatinine Ratio 41.9
[2021-03-31] MEDS ORDERED: POTASSIUM CHL 20MEQ/100ML 100 ML IV ONE (04:30)
[2021-03-31] MEDS: FUROSEMIDE 40 MG/4 ML VIAL IV SCH ×2 (06:00→17:52)
[2021-03-31] MEDS: METOCLOPRAMIDE HCL 5MG/ml INJ 2ml VIAL IV SCH ×3 (06:02→22:28)
[2021-03-31] MEDS: BUDESONIDE (INHALATION) 0.5 MG/2 ML NEB NEB SCH ×2 (06:37→22:14)
[2021-03-31] MEDS: ALBUTEROL SULF 2.5 MG/0.5ML(0.5%) NEB SOLN NEB PRN ×2 (06:37→22:14)
[2021-03-31] MEDS: PROPOFOL 100 ML IV SCH ×2 (09:12→13:55)
[2021-03-31] MEDS: FAMOTIDINE (10MG/ML) 2ML VL IV SCH ×2 (09:42→22:28)
[2021-03-31] MEDS: ENOXAPARIN SOD 100 MG/1 ML SYRINGE SC SCH ×2 (09:42→22:29)
[2021-03-31] MEDS: fentaNYL Drip 2500mCg/250mlNS 250 ML IV SCH ×2 (09:57→22:57)
[2021-03-31] MEDS: NOREPINEPHRINE 8 MG/250ML KIT 250 ML IV SCH ×2 (10:45→15:45)
[2021-03-31] MEDS: MIDAZOLAM DRIP 50 mg/50mL 50 ML IV SCH (11:50)
[2021-03-31] MEDS ORDERED: NOREPINEPHRINE 8 MG/250ML KIT 250 ML IV SCH (15:15)
[2021-03-31] MEDS: POTASSIUM CHL 20MEQ/100ML 100 ML IV SCH ×2 (15:33→17:47)
[2021-03-31] MEDS: ATORVASTATIN 20 MG TAB PO SCH (22:28)
[2021-04-01] VITALS (107 sets, daily range): BP systolic 78–146; BP diastolic 39–75
[2021-04-01 04:24] LABS: Basophils # (auto) 0.1 10 ^3/uL (0-0.2); Basophils % (auto) 0.8 % (0.0-2.0); Eosinophils # (auto) 0.6 10 ^3/uL (0-0.8); Eosinophils % (auto) 7.1 % (0.0-7.0); Hemoglobin 10.6 g/dL (13.5-17.5); Lymphocytes # (auto) 1.1 10 ^3/uL (0.4-5.4); Lymphocytes % (auto) 12.1 % (10.0-50.0); Mean Corpuscular Hemoglobin 28.9 pg (28.0-32.0); Mean Corpuscular Hgb Conc. 33.2 g/dL (32.0-36.0); Mean Corpuscular Volume 86.9 fL (80.0-100.0); Monocytes # (auto) 0.2 10 ^3/uL (0-1.3); Monocytes % (auto) 2.3 % (0.0-12.0); Neutrophils # (auto) 7.1 10 ^3/uL (1.6-8.6); Neutrophils % (auto) 77.7 % (37.0-80.0); Nucleated Red Blood Cells % 0.4 %; Red Blood Cells 3.68 10^6/uL (4.5-5.90); Red Cell Distribution Width 16.7 % (11.8-14.3); White Blood Cell 9.1 10^3/uL (4.4-10.8)
[2021-04-01 04:33] LABS: Anion Gap 8 (5-15); Blood Urea Nitrogen 14 mg/dL (7-18); Calcium 8.5 mg/dL (8.5-10.1); Carbon Dioxide 31 mmol/L (21-32); Chloride 102 mmol/L (98-107); Glucose 94 mg/dL (74-106); Potassium 3.2 mmol/L (3.5-5.1); Sodium 141 mmol/L (136-145)
[2021-04-01 04:42] LABS: BUN/Creatinine Ratio 35.9; GFR African American 276 mL/min; GFR Non-African American 228 mL/min
[2021-04-01 05:02] LABS: CRP High Sensitivity > 19.0 mg/dL (< 0.3)
[2021-04-01] MEDS: FUROSEMIDE 40 MG/4 ML VIAL IV SCH (06:00)
[2021-04-01] MEDS: FAMOTIDINE (10MG/ML) 2ML VL IV SCH ×2 (06:01→23:01)
[2021-04-01] MEDS: METOCLOPRAMIDE HCL 5MG/ml INJ 2ml VIAL IV SCH ×3 (06:01→23:02)
[2021-04-01] MEDS: ALBUTEROL SULF 2.5 MG/0.5ML(0.5%) NEB SOLN NEB PRN ×3 (06:43→22:26)
[2021-04-01] MEDS: BUDESONIDE (INHALATION) 0.5 MG/2 ML NEB NEB SCH ×2 (06:43→22:26)
[2021-04-01] MEDS ORDERED: POTASSIUM CHL 20MEQ/100ML 100 ML IV ONE (08:45)
[2021-04-01] MEDS: ENOXAPARIN SOD 100 MG/1 ML SYRINGE SC SCH ×2 (10:15→23:02)
[2021-04-01] MEDS: POTASSIUM CHL 20MEQ/100ML 100 ML IV SCH ×3 (12:00→14:30)
[2021-04-01] MEDS: MIDAZOLAM DRIP 50 mg/50mL 50 ML IV SCH (14:29)
[2021-04-01] MEDS: NOREPINEPHRINE 8 MG/250ML KIT 250 ML IV SCH (14:30)
[2021-04-01 15:50] LABS: INR 1.08 (0.9-1.15)
[2021-04-01] MEDS: ACETAMINOPHEN 650 mg PER 20.3 mL UD PO PRN ×2 (16:50→23:03)
[2021-04-01] MEDS: FUROSEMIDE 20 MG/2 ML VIAL IV SCH (18:38)
[2021-04-01] MEDS: fentaNYL Drip 2500mCg/250mlNS 250 ML IV SCH (18:40)
[2021-04-01] MEDS: ATORVASTATIN 20 MG TAB PO SCH (23:02)
[2021-04-02] VITALS (106 sets, daily range): BP systolic 69–228; BP diastolic 39–141
[2021-04-02 04:25] LABS: Hemoglobin 10.2 g/dL (13.5-17.5); Mean Corpuscular Hemoglobin 28.5 pg (28.0-32.0); Mean Corpuscular Hgb Conc. 32.8 g/dL (32.0-36.0); Mean Corpuscular Volume 86.9 fL (80.0-100.0); Red Blood Cells 3.57 10^6/uL (4.5-5.90); Red Cell Distribution Width 16.9 % (11.8-14.3); White Blood Cell 9.5 10^3/uL (4.4-10.8)
[2021-04-02 04:33] LABS: Anion Gap 13 (5-15); Calcium 8.7 mg/dL (8.5-10.1); Carbon Dioxide 28 mmol/L (21-32); Chloride 106 mmol/L (98-107); Magnesium 2.2 mg/dL (1.6-2.6); Sodium 147 mmol/L (136-145)
[2021-04-02 04:36] LABS: GFR African American 203 mL/min; GFR Non-African American 168 mL/min; Glucose 130 mg/dL (74-106)
[2021-04-02 04:44] LABS: Basophils % (manual) 0 (0.0-2.0); Blast Cells 0; Metamyelocytes % 0; Promyelocytes % 0; Reactive Lymphocytes 0
[2021-04-02 04:56] LABS: CRP High Sensitivity > 19.0 mg/dL (< 0.3)
[2021-04-02 05:49] LABS: Band Neutrophils % (manual) 34; Eosinophils % (manual) 6 (0-7); Lymphocytes % (manual) 6 (10.0-50.0); Monocytes % (manual) 3 (0-12); Myelocytes % 3
[2021-04-02] MEDS ORDERED: FUROSEMIDE INJECTION 10 ML ONE (05:49)
[2021-04-02] MEDS: FUROSEMIDE 20 MG/2 ML VIAL IV SCH ×2 (06:23→18:21)
[2021-04-02] MEDS: METOCLOPRAMIDE HCL 5MG/ml INJ 2ml VIAL IV SCH ×3 (06:23→21:44)
[2021-04-02] MEDS: PROPOFOL 100 ML IV SCH ×3 (06:24→23:30)
[2021-04-02] MEDS: MIDAZOLAM DRIP 50 mg/50mL 50 ML IV SCH ×2 (06:25→23:30)
[2021-04-02] MEDS: fentaNYL Drip 2500mCg/250mlNS 250 ML IV SCH (06:30)
[2021-04-02] MEDS: ALBUTEROL SULF 2.5 MG/0.5ML(0.5%) NEB SOLN NEB PRN ×3 (06:40→22:06)
[2021-04-02] MEDS: BUDESONIDE (INHALATION) 0.5 MG/2 ML NEB NEB SCH ×2 (06:40→22:05)
[2021-04-02] MEDS ORDERED: AMIODARONE HCL 150 MG in D5W 5% 100 ML IV ONE (07:45)
[2021-04-02 07:53] LABS: BUN/Creatinine Ratio 25.5; Blood Urea Nitrogen 13 mg/dL (7-18)
[2021-04-02] MEDS ORDERED: AMIODARONE 450mg/250ml AE 250 ML IV SCH (08:00)
[2021-04-02] MEDS: ENOXAPARIN SOD 100 MG/1 ML SYRINGE SC SCH ×2 (10:00→21:44)
[2021-04-02] MEDS: FAMOTIDINE (10MG/ML) 2ML VL IV SCH ×2 (10:00→21:44)
[2021-04-02] MEDS: ACETAMINOPHEN 650 mg PER 20.3 mL UD PO PRN (12:40)
[2021-04-02] MEDS: AMIODARONE 450mg/250ml AE 250 ML IV SCH (14:00)
[2021-04-02] MEDS: NOREPINEPHRINE 8 MG/250ML KIT 250 ML IV SCH ×2 (14:43→21:46)
[2021-04-02] MEDS: ATORVASTATIN 20 MG TAB PO SCH (21:45)
[2021-04-03] VITALS (108 sets, daily range): BP systolic 80–152; BP diastolic 44–109
[2021-04-03 03:38] LABS: Hematocrit 34.5 % (41.0-53.0); Hemoglobin 11.2 g/dL (13.5-17.5); Mean Corpuscular Hgb Conc. 32.4 g/dL (32.0-36.0); Mean Corpuscular Volume 86.5 fL (80.0-100.0); Red Blood Cells 3.99 10^6/uL (4.5-5.90); Red Cell Distribution Width 16.2 % (11.8-14.3); White Blood Cell 9.1 10^3/uL (4.4-10.8)
[2021-04-03 03:43] LABS: Basophils % (manual) 0 (0.0-2.0); Blast Cells 0; Eosinophils % (manual) 0 (0-7); Metamyelocytes % 0; Promyelocytes % 0; Reactive Lymphocytes 0
[2021-04-03 03:54] LABS: Anion Gap 7 (5-15); BUN/Creatinine Ratio 16.7; Blood Urea Nitrogen 9 mg/dL (7-18); Calcium 8.6 mg/dL (8.5-10.1); Carbon Dioxide 31 mmol/L (21-32); Chloride 100 mmol/L (98-107); GFR African American 190 mL/min; GFR Non-African American 157 mL/min; Glucose 127 mg/dL (74-106); Sodium 138 mmol/L (136-145)
[2021-04-03] MEDS: AMIODARONE 450mg/250ml AE 250 ML IV SCH (05:00)
[2021-04-03 05:22] LABS: INR 1.1 (0.9-1.15); Partial Thromboplastin Time 29.6 sec (23.6-33.0)
[2021-04-03] MEDS: FUROSEMIDE 20 MG/2 ML VIAL IV SCH ×2 (05:30→06:00)
[2021-04-03] MEDS: METOCLOPRAMIDE HCL 5MG/ml INJ 2ml VIAL IV SCH ×3 (05:30→22:30)
[2021-04-03] MEDS: PROPOFOL 100 ML IV SCH (06:00)
[2021-04-03] MEDS: MIDAZOLAM DRIP 50 mg/50mL 50 ML IV SCH (06:00)
[2021-04-03] MEDS: NOREPINEPHRINE 8 MG/250ML KIT 250 ML IV SCH (06:20)
[2021-04-03 06:39] LABS: CRP High Sensitivity > 19.0 mg/dL (< 0.3)
[2021-04-03 06:50] LABS: Band Neutrophils % (manual) 16; Lymphocytes % (manual) 21 (10.0-50.0); Monocytes % (manual) 6 (0-12); Myelocytes % 1
[2021-04-03] MEDS: POTASSIUM CHL 20MEQ/100ML 100 ML IV SCH ×3 (07:15→11:37)
[2021-04-03] MEDS ORDERED: POTASSIUM CHL 20MEQ/100ML 100 ML IV ONE (07:21)
[2021-04-03] MEDS: ENOXAPARIN SOD 100 MG/1 ML SYRINGE SC SCH ×2 (09:04→22:31)
[2021-04-03] MEDS: FAMOTIDINE (10MG/ML) 2ML VL IV SCH ×2 (09:04→22:30)
[2021-04-03] MEDS: BUDESONIDE (INHALATION) 0.5 MG/2 ML NEB NEB SCH ×2 (14:30→22:00)
[2021-04-03] MEDS: ALBUTEROL SULF 2.5 MG/0.5ML(0.5%) NEB SOLN NEB PRN ×2 (14:30→22:00)
[2021-04-03] MEDS: fentaNYL Drip 2500mCg/250mlNS 250 ML IV SCH (19:30)
[2021-04-03] MEDS: ATORVASTATIN 20 MG TAB PO SCH (22:31)
[2021-04-03] MEDS: ACETAMINOPHEN 650 mg PER 20.3 mL UD PO PRN (22:32)
[2021-04-04] VITALS (106 sets, daily range): BP systolic 74–161; BP diastolic 40–149
[2021-04-04] MEDS: AMIODARONE 450mg/250ml AE 250 ML IV SCH ×3 (01:05→22:17)
[2021-04-04] MEDS: PROPOFOL 100 ML IV SCH ×3 (01:06→23:30)
[2021-04-04 04:43] LABS: Hemoglobin 10.3 g/dL (13.5-17.5)
[2021-04-04 04:44] LABS: Hematocrit 31.8 % (41.0-53.0); Mean Corpuscular Hgb Conc. 32.2 g/dL (32.0-36.0); Mean Corpuscular Volume 86.8 fL (80.0-100.0); Red Blood Cells 3.67 10^6/uL (4.5-5.90); Red Cell Distribution Width 16.5 % (11.8-14.3); White Blood Cell 8.1 10^3/uL (4.4-10.8)
[2021-04-04 05:02] LABS: Basophils % (manual) 0 (0.0-2.0); Blast Cells 0; Promyelocytes % 0; Reactive Lymphocytes 0
[2021-04-04] MEDS: NOREPINEPHRINE 8 MG/250ML KIT 250 ML IV SCH ×3 (05:03→21:07)
[2021-04-04] MEDS: fentaNYL Drip 2500mCg/250mlNS 250 ML IV SCH ×2 (05:05→17:45)
[2021-04-04] MEDS: MIDAZOLAM DRIP 50 mg/50mL 50 ML IV SCH ×4 (05:06→23:30)
[2021-04-04 05:08] LABS: Anion Gap 9 (5-15); Calcium 8.3 mg/dL (8.5-10.1); Carbon Dioxide 30 mmol/L (21-32); Chloride 100 mmol/L (98-107); Glucose 130 mg/dL (74-106); Sodium 139 mmol/L (136-145)
[2021-04-04 05:16] LABS: BUN/Creatinine Ratio 15.8; Blood Urea Nitrogen 9 mg/dL (7-18); GFR African American 178 mL/min; GFR Non-African American 147 mL/min
[2021-04-04] MEDS: METOCLOPRAMIDE HCL 5MG/ml INJ 2ml VIAL IV SCH ×3 (06:00→22:18)
[2021-04-04] MEDS: FUROSEMIDE 20 MG/2 ML VIAL IV SCH ×2 (06:00→16:58)
[2021-04-04] MEDS: BUDESONIDE (INHALATION) 0.5 MG/2 ML NEB NEB SCH ×2 (06:50→22:12)
[2021-04-04 07:15] LABS: CRP High Sensitivity > 19.0 mg/dL (< 0.3)
[2021-04-04] MEDS ORDERED: POTASSIUM CHL 20MEQ/100ML 100 ML IV ONE (07:56)
[2021-04-04 08:12] LABS: Band Neutrophils % (manual) 18; Eosinophils % (manual) 12 (0-7); Lymphocytes % (manual) 8 (10.0-50.0); Metamyelocytes % 1; Monocytes % (manual) 7 (0-12); Myelocytes % 1
[2021-04-04] MEDS: POTASSIUM CHL 20MEQ/100ML 100 ML IV SCH ×3 (08:25→11:31)
[2021-04-04] MEDS: FAMOTIDINE (10MG/ML) 2ML VL IV SCH ×2 (09:54→22:18)
[2021-04-04] MEDS: ENOXAPARIN SOD 60 MG/0.6 ML SYRINGE SC SCH ×2 (09:54→22:18)
[2021-04-04] MEDS: ACETAMINOPHEN 650 mg PER 20.3 mL UD PO PRN (11:15)
[2021-04-04] MEDS ORDERED: AMIODARONE HCL 150 MG in D5W 5% 100 ML IV ONE (21:30)
[2021-04-04] MEDS ORDERED: AMIODARONE HCL (50 MG/ ML) 3 ML VIAL IV ONE (21:42)
[2021-04-04] MEDS: ATORVASTATIN 20 MG TAB PO SCH (22:18)
[2021-04-05] VITALS (97 sets, daily range): BP systolic 62–139; BP diastolic 39–95
[2021-04-05] MEDS: AMIODARONE 450mg/250ml AE 250 ML IV SCH ×3 (00:32→22:16)
[2021-04-05] MEDS: NOREPINEPHRINE 8 MG/250ML KIT 250 ML IV SCH ×2 (02:08→14:07)
[2021-04-05 04:31] LABS: Hematocrit 29.8 % (41.0-53.0); Hemoglobin 9.8 g/dL (13.5-17.5); Mean Corpuscular Hemoglobin 28.3 pg (28.0-32.0); Mean Corpuscular Hgb Conc. 32.8 g/dL (32.0-36.0); Mean Corpuscular Volume 86.2 fL (80.0-100.0); Red Blood Cells 3.46 10^6/uL (4.5-5.90); Red Cell Distribution Width 16.7 % (11.8-14.3); White Blood Cell 9.4 10^3/uL (4.4-10.8)
[2021-04-05] MEDS: fentaNYL Drip 2500mCg/250mlNS 250 ML IV SCH ×2 (04:46→17:51)
[2021-04-05 04:47] LABS: Basophils % (manual) 0 (0.0-2.0); Blast Cells 0; Promyelocytes % 0; Reactive Lymphocytes 0
[2021-04-05 04:51] LABS: Potassium 3.4 mmol/L (3.5-5.1)
[2021-04-05 04:57] LABS: BUN/Creatinine Ratio 15.4; Calcium 8.2 mg/dL (8.5-10.1)
[2021-04-05 05:44] LABS: Band Neutrophils % (manual) 24; Eosinophils % (manual) 5 (0-7); Lymphocytes % (manual) 21 (10.0-50.0); Metamyelocytes % 1; Monocytes % (manual) 6 (0-12); Myelocytes % 5
[2021-04-05] MEDS: MIDAZOLAM DRIP 50 mg/50mL 50 ML IV SCH ×2 (06:10→16:05)
[2021-04-05] MEDS: FUROSEMIDE 20 MG/2 ML VIAL IV SCH ×2 (06:11→17:52)
[2021-04-05] MEDS: METOCLOPRAMIDE HCL 5MG/ml INJ 2ml VIAL IV SCH ×3 (06:11→22:15)
[2021-04-05] MEDS: BUDESONIDE (INHALATION) 0.5 MG/2 ML NEB NEB SCH ×2 (06:33→22:18)
[2021-04-05] MEDS: ALBUTEROL SULF 2.5 MG/0.5ML(0.5%) NEB SOLN NEB PRN ×2 (06:33→22:19)
[2021-04-05] MEDS ORDERED: POTASSIUM CHL 20MEQ/100ML 100 ML IV ONE ×2 (06:45→06:51)
[2021-04-05] MEDS: ACETAMINOPHEN 650 mg PER 20.3 mL UD PO PRN (07:53)
[2021-04-05] MEDS: Glucerna 1.2 Cal 1Liter BOTTLE GT SCH (08:17)
[2021-04-05] MEDS: FAMOTIDINE (10MG/ML) 2ML VL IV SCH ×2 (09:25→22:15)
[2021-04-05] MEDS: ENOXAPARIN SOD 60 MG/0.6 ML SYRINGE SC SCH ×2 (09:26→22:15)
[2021-04-05] MEDS: PROPOFOL 100 ML IV SCH (16:00)
[2021-04-05] MEDS: ATORVASTATIN 20 MG TAB PO SCH (22:15)
[2021-04-06] VITALS (102 sets, daily range): BP systolic 91–158; BP diastolic 53–100
[2021-04-06 03:56] LABS: Hematocrit 29.1 % (41.0-53.0); Hemoglobin 9.5 g/dL (13.5-17.5); Mean Corpuscular Hemoglobin 28.1 pg (28.0-32.0); Mean Corpuscular Hgb Conc. 32.8 g/dL (32.0-36.0); Mean Corpuscular Volume 85.7 fL (80.0-100.0); Red Cell Distribution Width 16.9 % (11.8-14.3); White Blood Cell 10.7 10^3/uL (4.4-10.8)
[2021-04-06 04:04] LABS: Basophils % (manual) 0 (0.0-2.0); Blast Cells 0; Metamyelocytes % 0; Promyelocytes % 0; Reactive Lymphocytes 0
[2021-04-06 04:15] LABS: Potassium 3.3 mmol/L (3.5-5.1)
[2021-04-06 04:21] LABS: BUN/Creatinine Ratio 14.1; Bilirubin, Total 1.1 mg/dL (0.2-1.0); Total Protein 5.5 g/dL (6.4-8.2)
[2021-04-06 05:00] LABS: Eosinophils % (manual) 7 (0-7); Myelocytes % 7
[2021-04-06 05:01] LABS: Monocytes % (manual) 10 (0-12)
[2021-04-06 05:02] LABS: Band Neutrophils % (manual) 35; Lymphocytes % (manual) 10 (10.0-50.0)
[2021-04-06] MEDS: FUROSEMIDE 20 MG/2 ML VIAL IV SCH ×2 (06:00→17:27)
[2021-04-06] MEDS: METOCLOPRAMIDE HCL 5MG/ml INJ 2ml VIAL IV SCH ×3 (06:00→21:14)
[2021-04-06] MEDS: ALBUTEROL SULF 2.5 MG/0.5ML(0.5%) NEB SOLN NEB PRN ×3 (06:43→19:01)
[2021-04-06] MEDS: BUDESONIDE (INHALATION) 0.5 MG/2 ML NEB NEB SCH ×2 (06:43→19:01)
[2021-04-06] MEDS ORDERED: POTASSIUM CHL 20MEQ/100ML 100 ML IV ONE ×2 (07:05→07:15)
[2021-04-06] MEDS: FAMOTIDINE (10MG/ML) 2ML VL IV SCH ×2 (09:24→21:13)
[2021-04-06] MEDS: ENOXAPARIN SOD 60 MG/0.6 ML SYRINGE SC SCH ×2 (09:25→21:14)
[2021-04-06] MEDS: PROPOFOL 100 ML IV SCH (10:12)
[2021-04-06] MEDS: NOREPINEPHRINE 8 MG/250ML KIT 250 ML IV SCH ×2 (10:13→17:28)
[2021-04-06] MEDS ORDERED: AMIODARONE HCL 150 MG in D5W 5% 100 ML IV ONE (10:30)
[2021-04-06] MEDS ORDERED: AMIODARONE HCL (50 MG/ ML) 3 ML VIAL IV ONE (10:39)
[2021-04-06] MEDS: AMIODARONE 450mg/250ml AE 250 ML IV SCH (12:26)
[2021-04-06] MEDS: fentaNYL Drip 2500mCg/250mlNS 250 ML IV SCH (15:58)
[2021-04-06] MEDS: MIDAZOLAM DRIP 50 mg/50mL 50 ML IV SCH (15:59)
[2021-04-06] MEDS ORDERED: AMPHOTERICIN B LIPOSOME IV SCH (20:00)
[2021-04-06] MEDS ORDERED: D5W 5% IV SCH (20:00)
[2021-04-06] MEDS: ATORVASTATIN 20 MG TAB PO SCH (21:14)
[2021-04-07] VITALS (98 sets, daily range): BP systolic 91–117; BP diastolic 43–71
[2021-04-07 02:50] LABS: Hematocrit 29.2 % (41.0-53.0); Hemoglobin 9.5 g/dL (13.5-17.5); Mean Corpuscular Hemoglobin 28.1 pg (28.0-32.0); Mean Corpuscular Hgb Conc. 32.5 g/dL (32.0-36.0); Mean Corpuscular Volume 86.5 fL (80.0-100.0); Red Blood Cells 3.38 10^6/uL (4.5-5.90); Red Cell Distribution Width 16.4 % (11.8-14.3); White Blood Cell 14.2 10^3/uL (4.4-10.8)
[2021-04-07 02:58] LABS: Basophils % (manual) 0 (0.0-2.0); Blast Cells 0; Metamyelocytes % 0; Promyelocytes % 0; Reactive Lymphocytes 0
[2021-04-07 02:59] LABS: Calcium 7.9 mg/dL (8.5-10.1)
[2021-04-07 03:00] LABS: BUN/Creatinine Ratio 12.8
[2021-04-07 03:03] LABS: Bilirubin, Total 1.3 mg/dL (0.2-1.0); Total Protein 5.4 g/dL (6.4-8.2)
[2021-04-07 03:53] LABS: Potassium 2.8 mmol/L (3.5-5.1)
[2021-04-07 03:54] LABS: Albumin 0.9 g/dL (3.4-5.0)
[2021-04-07] MEDS: AMIODARONE 450mg/250ml AE 250 ML IV SCH ×2 (05:00→20:32)
[2021-04-07 05:08] LABS: Calcium 7.8 mg/dL (8.5-10.1)
[2021-04-07 05:11] LABS: BUN/Creatinine Ratio 13.3; Bilirubin, Total 1.1 mg/dL (0.2-1.0); Total Protein 5.4 g/dL (6.4-8.2)
[2021-04-07] MEDS: FUROSEMIDE 20 MG/2 ML VIAL IV SCH ×2 (05:32→17:22)
[2021-04-07] MEDS: METOCLOPRAMIDE HCL 5MG/ml INJ 2ml VIAL IV SCH ×3 (05:33→21:27)
[2021-04-07 06:05] LABS: Potassium 2.7 mmol/L (3.5-5.1)
[2021-04-07] MEDS ORDERED: POTASSIUM CHL 20MEQ/100ML 100 ML IV ONE ×2 (06:15→06:23)
[2021-04-07 07:03] LABS: Eosinophils % (manual) 6 (0-7); Monocytes % (manual) 5 (0-12); Myelocytes % 9
[2021-04-07 07:05] LABS: Band Neutrophils % (manual) 43; Lymphocytes % (manual) 7 (10.0-50.0)
[2021-04-07] MEDS: NOREPINEPHRINE 8 MG/250ML KIT 250 ML IV SCH ×2 (08:26→16:23)
[2021-04-07] MEDS: BUDESONIDE (INHALATION) 0.5 MG/2 ML NEB NEB SCH ×2 (09:36→22:06)
[2021-04-07] MEDS: ALBUTEROL SULF 2.5 MG/0.5ML(0.5%) NEB SOLN NEB PRN ×2 (09:36→22:06)
[2021-04-07] MEDS: FAMOTIDINE (10MG/ML) 2ML VL IV SCH ×2 (09:42→21:28)
[2021-04-07] MEDS: ENOXAPARIN SOD 60 MG/0.6 ML SYRINGE SC SCH ×2 (09:42→21:27)
[2021-04-07] MEDS: POTASSIUM CHL 20MEQ/100ML 100 ML IV SCH ×2 (12:03→13:45)
[2021-04-07] MEDS: fentaNYL Drip 2500mCg/250mlNS 250 ML IV SCH (17:21)
[2021-04-07] MEDS: PROPOFOL 100 ML IV SCH (17:22)
[2021-04-07] MEDS: MIDAZOLAM DRIP 50 mg/50mL 50 ML IV SCH (17:29)
[2021-04-07] MEDS: D5W 5% IV SCH (20:34)
[2021-04-07] MEDS: AMPHOTERICIN B LIPOSOME IV SCH (20:34)
[2021-04-07] MEDS: POTASSIUM EFFERVESENT TAB 25 MEQ GT SCH (21:26)
[2021-04-07] MEDS: ATORVASTATIN 20 MG TAB PO SCH (21:27)
[2021-04-08] VITALS (103 sets, daily range): BP systolic 84–151; BP diastolic 39–96
[2021-04-08 04:25] LABS: Red Blood Cells 3.26 10^6/uL (4.5-5.90)
[2021-04-08 04:28] LABS: Hematocrit 28.1 % (41.0-53.0); Hemoglobin 9.2 g/dL (13.5-17.5); Mean Corpuscular Hemoglobin 28.2 pg (28.0-32.0); Mean Corpuscular Hgb Conc. 32.8 g/dL (32.0-36.0); Mean Corpuscular Volume 86.1 fL (80.0-100.0); Red Cell Distribution Width 17.1 % (11.8-14.3); White Blood Cell 15.7 10^3/uL (4.4-10.8)
[2021-04-08 04:31] LABS: Basophils % (manual) 0 (0.0-2.0); Blast Cells 0; Metamyelocytes % 0; Promyelocytes % 0; Reactive Lymphocytes 0
[2021-04-08 04:39] LABS: Potassium 3.1 mmol/L (3.5-5.1)
[2021-04-08 04:45] LABS: BUN/Creatinine Ratio 12.7; Calcium 7.9 mg/dL (8.5-10.1)
[2021-04-08] MEDS: fentaNYL Drip 2500mCg/250mlNS 250 ML IV SCH ×2 (05:44→17:50)
[2021-04-08] MEDS: FUROSEMIDE 20 MG/2 ML VIAL IV SCH ×3 (06:00→17:49)
[2021-04-08] MEDS: METOCLOPRAMIDE HCL 5MG/ml INJ 2ml VIAL IV SCH ×3 (06:10→21:22)
[2021-04-08 06:48] LABS: Band Neutrophils % (manual) 28; Eosinophils % (manual) 3 (0-7); Lymphocytes % (manual) 7 (10.0-50.0); Monocytes % (manual) 5 (0-12); Myelocytes % 8
[2021-04-08] MEDS: BUDESONIDE (INHALATION) 0.5 MG/2 ML NEB NEB SCH ×2 (06:51→22:59)
[2021-04-08] MEDS: ALBUTEROL SULF 2.5 MG/0.5ML(0.5%) NEB SOLN NEB PRN ×2 (06:51→22:59)
[2021-04-08] MEDS: POTASSIUM CHL 20MEQ/100ML 100 ML IV SCH ×2 (07:54→09:54)
[2021-04-08] MEDS: POTASSIUM EFFERVESENT TAB 25 MEQ GT SCH ×2 (09:28→21:21)
[2021-04-08] MEDS: DexAMETHasone SOD PHOS 10MG/1ML VIAL INJ IV SCH (09:28)
[2021-04-08] MEDS: FAMOTIDINE (10MG/ML) 2ML VL IV SCH ×2 (09:29→21:22)
[2021-04-08] MEDS: ENOXAPARIN SOD 60 MG/0.6 ML SYRINGE SC SCH ×2 (09:29→21:22)
[2021-04-08] MEDS: NOREPINEPHRINE 8 MG/250ML KIT 250 ML IV SCH ×2 (09:46→15:18)
[2021-04-08] MEDS: AMIODARONE 450mg/250ml AE 250 ML IV SCH (10:56)
[2021-04-08] MEDS: MIDAZOLAM DRIP 50 mg/50mL 50 ML IV SCH (13:57)
[2021-04-08] MEDS: PROPOFOL 100 ML IV SCH (15:18)
[2021-04-08] MEDS: D5W 5% IV SCH (19:42)
[2021-04-08] MEDS: AMPHOTERICIN B LIPOSOME IV SCH (19:42)
[2021-04-08] MEDS: ATORVASTATIN 20 MG TAB PO SCH (21:22)
[2021-04-09] VITALS (105 sets, daily range): BP systolic 101–180; BP diastolic 50–85
[2021-04-09] MEDS: NOREPINEPHRINE 8 MG/250ML KIT 250 ML IV SCH ×3 (02:34→16:34)
[2021-04-09] MEDS: AMIODARONE 450mg/250ml AE 250 ML IV SCH ×2 (02:34→16:33)
[2021-04-09 05:24] LABS: Hemoglobin 8.7 g/dL (13.5-17.5)
[2021-04-09 05:27] LABS: Hematocrit 27.4 % (41.0-53.0); Mean Corpuscular Hemoglobin 27.3 pg (28.0-32.0); Mean Corpuscular Hgb Conc. 31.7 g/dL (32.0-36.0); Mean Corpuscular Volume 86.2 fL (80.0-100.0); Red Blood Cells 3.17 10^6/uL (4.5-5.90); Red Cell Distribution Width 17.8 % (11.8-14.3); White Blood Cell 18.7 10^3/uL (4.4-10.8)
[2021-04-09 05:42] LABS: BUN/Creatinine Ratio 17.7; Calcium 7.7 mg/dL (8.5-10.1); Potassium 5.3 mmol/L (3.5-5.1)
[2021-04-09 05:51] LABS: Basophils % (manual) 0 (0.0-2.0); Blast Cells 0; Eosinophils % (manual) 0 (0-7); Promyelocytes % 0; Reactive Lymphocytes 0
[2021-04-09] MEDS: PROPOFOL 100 ML IV SCH ×3 (05:51→17:21)
[2021-04-09] MEDS: fentaNYL Drip 2500mCg/250mlNS 250 ML IV SCH ×2 (05:59→16:38)
[2021-04-09] MEDS: METOCLOPRAMIDE HCL 5MG/ml INJ 2ml VIAL IV SCH ×3 (06:12→23:26)
[2021-04-09] MEDS: FUROSEMIDE 20 MG/2 ML VIAL IV SCH ×2 (06:13→17:22)
[2021-04-09] MEDS: ALBUTEROL SULF 2.5 MG/0.5ML(0.5%) NEB SOLN NEB PRN ×2 (06:25→22:09)
[2021-04-09] MEDS: BUDESONIDE (INHALATION) 0.5 MG/2 ML NEB NEB SCH ×2 (06:25→22:09)
[2021-04-09 06:42] LABS: Band Neutrophils % (manual) 24; Lymphocytes % (manual) 4 (10.0-50.0); Metamyelocytes % 3; Monocytes % (manual) 5 (0-12); Myelocytes % 1
[2021-04-09] MEDS: ENOXAPARIN SOD 60 MG/0.6 ML SYRINGE SC SCH ×2 (09:34→23:26)
[2021-04-09] MEDS: FAMOTIDINE (10MG/ML) 2ML VL IV SCH ×2 (09:34→23:25)
[2021-04-09] MEDS: POTASSIUM EFFERVESENT TAB 25 MEQ GT SCH ×2 (09:34→22:00)
[2021-04-09] MEDS: DexAMETHasone SOD PHOS 10MG/1ML VIAL INJ IV SCH (09:34)
[2021-04-09] MEDS: MIDAZOLAM DRIP 50 mg/50mL 50 ML IV SCH (17:20)
[2021-04-09] MEDS: AMPHOTERICIN B LIPOSOME IV SCH (20:04)
[2021-04-09] MEDS: D5W 5% IV SCH (20:04)
[2021-04-09] MEDS: ATORVASTATIN 20 MG TAB PO SCH (23:26)
[2021-04-10] VITALS (106 sets, daily range): BP systolic 73–137; BP diastolic 40–79
[2021-04-10 04:46] LABS: Hemoglobin 8.6 g/dL (13.5-17.5)
[2021-04-10 04:52] LABS: Hematocrit 26.2 % (41.0-53.0); Mean Corpuscular Hemoglobin 28.6 pg (28.0-32.0); Mean Corpuscular Hgb Conc. 32.8 g/dL (32.0-36.0); Mean Corpuscular Volume 87.4 fL (80.0-100.0); Red Blood Cells 2.99 10^6/uL (4.5-5.90); Red Cell Distribution Width 16.9 % (11.8-14.3); White Blood Cell 14.5 10^3/uL (4.4-10.8)
[2021-04-10 05:04] LABS: Basophils % (manual) 0 (0.0-2.0); Blast Cells 0; Eosinophils % (manual) 0 (0-7); Promyelocytes % 0; Reactive Lymphocytes 0
[2021-04-10 05:08] LABS: Potassium 3.4 mmol/L (3.5-5.1)
[2021-04-10 05:17] LABS: BUN/Creatinine Ratio 18.5; Calcium 7.6 mg/dL (8.5-10.1)
[2021-04-10] MEDS: METOCLOPRAMIDE HCL 5MG/ml INJ 2ml VIAL IV SCH ×3 (05:55→22:24)
[2021-04-10] MEDS: FUROSEMIDE 20 MG/2 ML VIAL IV SCH ×2 (05:55→18:23)
[2021-04-10] MEDS: ALBUTEROL SULF 2.5 MG/0.5ML(0.5%) NEB SOLN NEB PRN ×2 (06:15→22:15)
[2021-04-10] MEDS: BUDESONIDE (INHALATION) 0.5 MG/2 ML NEB NEB SCH ×2 (06:16→22:15)
[2021-04-10] MEDS: fentaNYL Drip 2500mCg/250mlNS 250 ML IV SCH ×2 (06:57→18:24)
[2021-04-10] MEDS: AMIODARONE 450mg/250ml AE 250 ML IV SCH (09:20)
[2021-04-10] MEDS: ENOXAPARIN SOD 60 MG/0.6 ML SYRINGE SC SCH ×2 (10:03→22:25)
[2021-04-10] MEDS: POTASSIUM EFFERVESENT TAB 25 MEQ GT SCH ×2 (10:04→22:26)
[2021-04-10] MEDS: FAMOTIDINE (10MG/ML) 2ML VL IV SCH ×2 (10:04→22:24)
[2021-04-10] MEDS: DexAMETHasone SOD PHOS 10MG/1ML VIAL INJ IV SCH (10:04)
[2021-04-10 10:38] LABS: Band Neutrophils % (manual) 11; Lymphocytes % (manual) 8 (10.0-50.0); Metamyelocytes % 3; Monocytes % (manual) 8 (0-12); Myelocytes % 1
[2021-04-10] MEDS: PROPOFOL 100 ML IV SCH ×2 (12:07→18:25)
[2021-04-10] MEDS: MIDAZOLAM DRIP 50 mg/50mL 50 ML IV SCH (14:19)
[2021-04-10] MEDS: NOREPINEPHRINE 8 MG/250ML KIT 250 ML IV SCH (16:25)
[2021-04-10] MEDS: D5W 5% IV SCH (20:29)
[2021-04-10] MEDS: AMPHOTERICIN B LIPOSOME IV SCH (20:29)
[2021-04-10] MEDS: ATORVASTATIN 20 MG TAB PO SCH (22:25)
[2021-04-11] VITALS (107 sets, daily range): BP systolic 83–126; BP diastolic 42–76
[2021-04-11] MEDS: AMIODARONE 450mg/250ml AE 250 ML IV SCH ×2 (00:25→15:10)
[2021-04-11 04:43] LABS: Hemoglobin 8.5 g/dL (13.5-17.5); Mean Corpuscular Hemoglobin 28.7 pg (28.0-32.0); Red Blood Cells 2.97 10^6/uL (4.5-5.90)
[2021-04-11 04:45] LABS: Hematocrit 25.9 % (41.0-53.0); Mean Corpuscular Hgb Conc. 32.9 g/dL (32.0-36.0); Mean Corpuscular Volume 87.3 fL (80.0-100.0); Red Cell Distribution Width 17.3 % (11.8-14.3); White Blood Cell 15.3 10^3/uL (4.4-10.8)
[2021-04-11 04:53] LABS: Potassium 3.5 mmol/L (3.5-5.1)
[2021-04-11 04:55] LABS: Basophils % (manual) 0 (0.0-2.0); Blast Cells 0; Eosinophils % (manual) 0 (0-7); Myelocytes % 0; Promyelocytes % 0; Reactive Lymphocytes 0
[2021-04-11 05:03] LABS: BUN/Creatinine Ratio 16.3; Calcium 7.9 mg/dL (8.5-10.1)
[2021-04-11] MEDS: FUROSEMIDE 20 MG/2 ML VIAL IV SCH ×2 (06:00→17:53)
[2021-04-11] MEDS: METOCLOPRAMIDE HCL 5MG/ml INJ 2ml VIAL IV SCH ×3 (06:26→21:38)
[2021-04-11] MEDS: fentaNYL Drip 2500mCg/250mlNS 250 ML IV SCH ×2 (06:27→15:14)
[2021-04-11] MEDS: ALBUTEROL SULF 2.5 MG/0.5ML(0.5%) NEB SOLN NEB PRN ×2 (06:30→22:28)
[2021-04-11] MEDS: BUDESONIDE (INHALATION) 0.5 MG/2 ML NEB NEB SCH ×2 (06:31→22:28)
[2021-04-11 07:22] LABS: Band Neutrophils % (manual) 19; Lymphocytes % (manual) 4 (10.0-50.0); Metamyelocytes % 3; Monocytes % (manual) 7 (0-12)
[2021-04-11] MEDS: PROPOFOL 100 ML IV SCH (08:20)
[2021-04-11] MEDS: FAMOTIDINE (10MG/ML) 2ML VL IV SCH ×2 (12:01→21:38)
[2021-04-11] MEDS: POTASSIUM EFFERVESENT TAB 25 MEQ GT SCH ×2 (12:01→21:37)
[2021-04-11] MEDS: ENOXAPARIN SOD 60 MG/0.6 ML SYRINGE SC SCH ×2 (12:01→21:39)
[2021-04-11] MEDS: ACETAMINOPHEN 650 mg PER 20.3 mL UD PO PRN (12:02)
[2021-04-11] MEDS: ACYCLOVIR SOD 50MG/ML 500 MG in D5W 5% 100 ML IV SCH ×2 (13:00→21:38)
[2021-04-11] MEDS: MIDAZOLAM DRIP 50 mg/50mL 50 ML IV SCH (13:43)
[2021-04-11] MEDS: NOREPINEPHRINE 8 MG/250ML KIT 250 ML IV SCH (15:11)
[2021-04-11] MEDS: AMPHOTERICIN B LIPOSOME IV SCH (20:00)
[2021-04-11] MEDS: D5W 5% IV SCH (20:00)
[2021-04-11] MEDS: ATORVASTATIN 20 MG TAB PO SCH (21:39)
[2021-04-12] VITALS (76 sets, daily range): BP systolic 82–99; BP diastolic 43–57
[2021-04-12] MEDS ORDERED: fentaNYL Drip 2500mCg/250mlNS 250 ML IV SCH (02:45)
[2021-04-12 03:55] LABS: Hematocrit 27.9 % (41.0-53.0); Mean Corpuscular Hemoglobin 28.9 pg (28.0-32.0); Mean Corpuscular Hgb Conc. 32.2 g/dL (32.0-36.0); Mean Corpuscular Volume 89.8 fL (80.0-100.0); Red Blood Cells 3.11 10^6/uL (4.5-5.90); Red Cell Distribution Width 17.4 % (11.8-14.3); White Blood Cell 20.8 10^3/uL (4.4-10.8)
[2021-04-12 04:13] LABS: Basophils % (manual) 0 (0.0-2.0); Blast Cells 0; Metamyelocytes % 0; Promyelocytes % 0; Reactive Lymphocytes 0
[2021-04-12 04:22] LABS: Calcium 7.2 mg/dL (8.5-10.1); Potassium 4.9 mmol/L (3.5-5.1)
[2021-04-12 04:24] LABS: BUN/Creatinine Ratio 12.9
[2021-04-12] MEDS: AMIODARONE 450mg/250ml AE 250 ML IV SCH (05:00)
[2021-04-12 05:23] LABS: Band Neutrophils % (manual) 46; Myelocytes % 5
[2021-04-12 05:25] LABS: Eosinophils % (manual) 4 (0-7); Lymphocytes % (manual) 13 (10.0-50.0); Monocytes % (manual) 4 (0-12)
[2021-04-12] MEDS: FUROSEMIDE 20 MG/2 ML VIAL IV SCH (06:00)
[2021-04-12] MEDS: ACYCLOVIR SOD 50MG/ML 500 MG in D5W 5% 100 ML IV SCH ×2 (06:00→14:00)
[2021-04-12] MEDS: METOCLOPRAMIDE HCL 5MG/ml INJ 2ml VIAL IV SCH ×2 (06:00→14:00)
[2021-04-12] MEDS: BUDESONIDE (INHALATION) 0.5 MG/2 ML NEB NEB SCH (06:12)
[2021-04-12] MEDS: ALBUTEROL SULF 2.5 MG/0.5ML(0.5%) NEB SOLN NEB PRN (06:12)
[2021-04-12] MEDS: ENOXAPARIN SOD 60 MG/0.6 ML SYRINGE SC SCH (09:53)
[2021-04-12] MEDS: FAMOTIDINE (10MG/ML) 2ML VL IV SCH (09:53)
[2021-04-12] MEDS: POTASSIUM EFFERVESENT TAB 25 MEQ GT SCH (10:00)
[2021-04-12] MEDS: PROPOFOL 100 ML IV SCH ×2 (10:15→12:10)
[2021-04-12] MEDS: MIDAZOLAM DRIP 50 mg/50mL 50 ML IV SCH (14:15)
[2021-04-12] MEDS ORDERED: SODIUM CHL 0.9% 1000 ML BAG XX ONE (14:45)
[2021-04-12] MEDS: NOREPINEPHRINE 8 MG/250ML KIT 250 ML IV SCH (15:16)
[2021-04-12] MEDS: ACETAMINOPHEN 650 mg PER 20.3 mL UD PO PRN (16:24)
[2021-04-12] MEDS ORDERED: MORPHINE SULFATE INJECTION 2 MG/ML SYRG IV PRN (16:45)
[2021-04-12] MEDS ORDERED: LORazepam 2MG/ML-1ML VIAL IV PRN (16:45)
== END 2021-04-12 20:40 | DRG 870 ==
LOC: ER 11:50 → EDBD 11:50 → TELE 18:28 → ICU WEST 03-16 23:38
PROVIDERS: ADMIT Family Medicine; ATTEND Internal Medicine
PROC: XW033E5 Introduction of Remdesivir Anti-infective into Peripheral Vein, Percutaneous Approach, New Technology Group 5 (ICD-10-PCS; 2021-03-11)
PROC: 5A1955Z Respiratory Ventilation, Greater than 96 Consecutive Hours (ICD-10-PCS; principal; 2021-03-20)
PROC: 0BH17EZ Insertion of Endotracheal Airway into Trachea, Via Natural or Artificial Opening (ICD-10-PCS; 2021-03-20)
PROC: 03HB33Z Insertion of Infusion Device into Right Radial Artery, Percutaneous Approach (ICD-10-PCS; 2021-03-20)
PROC: B34HZZZ Ultrasonography of Right Upper Extremity Arteries (ICD-10-PCS; 2021-03-20)
DX: A41.89 Other specified sepsis (principal); J96.01 Acute respiratory failure with hypoxia; I63.9 Cerebral infarction, unspecified; G92.8 Other toxic encephalopathy; I21.4 Non-ST elevation (NSTEMI) myocardial infarction; J12.82 Pneumonia due to coronavirus disease 2019; R65.21 Severe sepsis with septic shock; U07.1 COVID-19; G93.1 Anoxic brain damage, not elsewhere classified; Z99.11 Dependence on respirator [ventilator] status; E87.0 Hyperosmolality and hypernatremia; G81.91 Hemiplegia, unspecified affecting right dominant side; N39.0 Urinary tract infection, site not specified; D89.839 Cytokine release syndrome, grade unspecified; E88.09 Other disorders of plasma-protein metabolism, not elsewhere classified; E86.0 Dehydration; E87.6 Hypokalemia; D64.9 Anemia, unspecified; I48.0 Paroxysmal atrial fibrillation; E78.5 Hyperlipidemia, unspecified; E87.5 Hyperkalemia
CPT/HCPCS: 31500; 36415; 36600; 70450; 71045; 71046; 71275; 80048; 80053; 80061; 80202; 81001; 82270; 82271; 82728; 82805; 82962; 83615; 83735; 83880; 84132; 84443; 84484; 85007; 85025; 85027; 85379; 85610; 85730; 86141; 86606; 86710; 87040; 87070; 87081; 87205; 87426; 93005; 93306; 93886; 93970; 94002; 94003; 94640; 94660; 95819; 96365; 96368; 96372; 96375; 99291; G0378; J0330; J0696; J1100; J2248; J2250; J2704; J3480; J3490; J7060